=== PATIENT | male | born 1970 | race Caucasian/White ===

== ENCOUNTER 2020-09-15 12:25 | Outpatient (REF) | payer BC, SELFPAY ==
[2020-09-15 14:25] LABS: Alanine Aminotransferase 59 U/L (0-40); Albumin Level 4.2 g/dL (3.5-5.0); Alkaline Phosphatase 54 U/L (39-117); Anion Gap 12 (12-20); Aspartate Amino Transferase 33 U/L (5-37); Bilirubin Direct 0.2 mg/dL (0.0-0.5); Bilirubin Total 0.7 mg/dL (0.0-1.0); Blood Urea Nitrogen 17 mg/dL (9-16); Carbon Dioxide 27 mmol/L (22-29); Chloride 106 mmol/L (96-108); Estimated Glomerular Filt Rate > 60; Glucose Random 126 mg/dL (60-115); Sodium 141 mmol/L (135-145)
== END 2020-09-15 12:26 | disposition home or self-care (01) ==
LOC: HO.HMGCLDS 12:25
PROVIDERS: PCP Internal Medicine; Visit Provider Internal Medicine
DX: E78.9 Disorder of lipoprotein metabolism, unspecified (principal); H73.90 Unspecified disorder of tympanic membrane, unspecified ear; H91.90 Unspecified hearing loss, unspecified ear; I10 Essential (primary) hypertension
CPT/HCPCS: 36415; 80048; 80076

== ENCOUNTER 2021-07-20 11:33 | Outpatient (REF) | payer BC, SELFPAY ==
[2021-07-20 13:49] LABS: MANUAL DIFF FLAG NO
[2021-07-20 13:56] LABS: Basophils Percent Auto 0.6 % (0-2); Eosinophils Absolute Auto 0.1 X10*3/uL (0.0-0.4); Eosinophils Percent Auto 1.1 % (0-4); Hematocrit 47.5 % (42.0-52.0); Hemoglobin 15.7 g/dl (14.0-18.0); Imm Gran Abs Auto 0.02 X10*3/uL (0.00-0.03); Imm Gran Pct Auto 0.3 % (0.0-0.4); Lymphocytes Absolute Auto 2.7 X10*3/uL (1.2-4.9); Lymphocytes Percent Auto 37.6 % (20-40); Mean Corpuscular HGB Conc 33.1 g/dl (31.0-36.0); Mean Corpuscular Hemoglobin 30.3 pg (27.0-33.0); Mean Corpuscular Volume 91.7 fL (80.0-98.0); Mean Platelet Volume 9.8 fL (9.4-12.4); Monocytes Absolute Auto 0.6 X10*3/uL (0.1-1.2); Monocytes Percent Auto 8.2 % (2-11); Neutrophils Absolute Auto 3.7 x10*3/uL (2.0-8.3); Neutrophils Percent Auto 52.2 % (45-73); Platelet Count 361 X10*3/uL (160-400); Red Blood Count 5.18 X10*6/uL (4.60-5.80); Red Cell Distribution Width 14.3 % (11.0-16.0); White Blood Count 7.1 X10*3/uL (4.8-10.8)
[2021-07-20 14:29] LABS: Alanine Aminotransferase 49 U/L (0-40); Albumin Level 4.3 g/dL (3.5-5.0); Alkaline Phosphatase 55 U/L (39-117); Anion Gap 13 (12-20); Aspartate Amino Transferase 29 U/L (5-37); Bilirubin Total 0.7 mg/dL (0.0-1.0); Blood Urea Nitrogen 18 mg/dL (9-16); Calcium 9.4 mg/dL (8.4-10.2); Carbon Dioxide 24 mmol/L (22-29); Chloride 109 mmol/L (96-108); Cholesterol 198 mg/dL; Estimated Glomerular Filt Rate > 60; Glucose Fasting 98 mg/dL (60-99); HDL Cholesterol 35 mg/dL; LDL Cholesterol Calculated 124 mg/dl; Sodium 142 mmol/L (135-145); Total Protein 7.3 g/dL (6.5-8.0); Triglycerides 195 mg/dL
== END 2021-07-20 11:34 | disposition home or self-care (01) ==
LOC: HO.HMGCLDS 11:33
PROVIDERS: PCP Internal Medicine; Visit Provider Internal Medicine
DX: Z00.01 Encounter for general adult medical examination with abnormal findings (principal); E78.9 Disorder of lipoprotein metabolism, unspecified; I10 Essential (primary) hypertension
CPT/HCPCS: 36415; 80053; 80061; 85025

== ENCOUNTER 2022-01-18 12:06 | Outpatient (REF) | payer BC, SELFPAY ==
[2022-01-18 13:43] LABS: MANUAL DIFF FLAG NO
[2022-01-18 13:55] LABS: Basophils Absolute Auto 0.1 X10*3/uL (0.0-0.2); Basophils Percent Auto 0.7 % (0-2); Eosinophils Absolute Auto 0.1 X10*3/uL (0.0-0.4); Eosinophils Percent Auto 1.2 % (0-4); Hematocrit 46.6 % (42.0-52.0); Hemoglobin 15.5 g/dl (14.0-18.0); Imm Gran Abs Auto 0.02 X10*3/uL (0.00-0.03); Imm Gran Pct Auto 0.3 % (0.0-0.4); Lymphocytes Absolute Auto 2.6 X10*3/uL (1.2-4.9); Lymphocytes Percent Auto 34.3 % (20-40); Mean Corpuscular HGB Conc 33.3 g/dl (31.0-36.0); Mean Corpuscular Hemoglobin 30.6 pg (27.0-33.0); Mean Corpuscular Volume 91.9 fL (80.0-98.0); Mean Platelet Volume 10.3 fL (9.4-12.4); Monocytes Absolute Auto 0.6 X10*3/uL (0.1-1.2); Monocytes Percent Auto 8.3 % (2-11); Neutrophils Absolute Auto 4.2 x10*3/uL (2.0-8.3); Neutrophils Percent Auto 55.2 % (45-73); Platelet Count 345 X10*3/uL (160-400); Red Blood Count 5.07 X10*6/uL (4.60-5.80); Red Cell Distribution Width 14.2 % (11.0-16.0); White Blood Count 7.7 X10*3/uL (4.8-10.8)
[2022-01-18 14:12] LABS: Alanine Aminotransferase 47 U/L (0-40); Albumin Level 4.1 g/dL (3.5-5.0); Alkaline Phosphatase 56 U/L (39-117); Anion Gap 11 (12-20); Aspartate Amino Transferase 32 U/L (5-37); Bilirubin Total 0.6 mg/dL (0.0-1.0); Blood Urea Nitrogen 16 mg/dL (9-16); Calcium 8.9 mg/dL (8.4-10.2); Carbon Dioxide 23 mmol/L (22-29); Chloride 109 mmol/L (96-108); Cholesterol 186 mg/dL; Estimated Glomerular Filt Rate > 60; Glucose Fasting 91 mg/dL (60-99); HDL Cholesterol 32 mg/dL; LDL Cholesterol Calculated 116 mg/dl; Potassium 4.3 mmol/L (3.3-5.1); Sodium 139 mmol/L (135-145); Triglycerides 194 mg/dL
== END 2022-01-18 12:07 | disposition home or self-care (01) ==
LOC: HO.HMGCLDS 12:06
PROVIDERS: Visit Provider Internal Medicine
DX: E66.09 Other obesity due to excess calories (principal); E78.9 Disorder of lipoprotein metabolism, unspecified; I10 Essential (primary) hypertension
CPT/HCPCS: 36415; 80053; 80061; 85025

== ENCOUNTER → 2022-02-27 14:00 | Outpatient (REF) | payer BC, SELFPAY ==
--- NOTE | 2022-02-27 14:03 | CA_ITS ---
Transthoracic Echocardiogram Patient (Last, First, Middle): Juan Girard N Gender: Male Date of : 1970 Age: 51 Procedure Date: 02/27/2022 Procedure Type: Transthoracic Echocardiogram Location: OP Height: 177.8 cm Weight: 113.4 kg BSA: 2.29 m2 Heart Rate: bpm BP: 129 / 87 mmHg Sport Psychologist: FRANCISCO Referring MD: Nader Parry MD Rounding And Backing Machine Operator: Schuyler Skaggs MD Symptoms: R07.89 - Other chest pain Study Quality: Adequate ECG Rhythm: Sinus Conclusions: - Essentially normal study Findings Left Ventricle Normal left ventricular size, thickness, and systolic function. The visually estimated ejection fraction is between 60-65%. Spectral Doppler is indicative of a normal filling pattern. Right Ventricle Normal right ventricular cavity size and systolic function. Atria Both atria are normal in size. There is no evidence of interatrial shunt. Aortic Valve Normal aortic valve structure and function. There is no aortic valve stenosis. There is no aortic valve regurgitation. Mitral Valve Normal mitral valve structure and function. There is no mitral valve regurgitation. There is no mitral valve stenosis. Pulmonic Valve The pulmonic valve is likely normal. There is trace to mild pulmonic valve regurgitation. Tricuspid Valve Normal tricuspid valve structure. Tricuspid regurgitation envelope is inadequate for calculation of right ventricular systolic pressure. Normal right atrial pressure. Great Vessels All visible segments of the aorta are normal in size. The pulmonary artery was not well visualized. Venous The inferior vena cava is normal in size and collapses greater than 50% with inspiration. Pericardium/Pleural There is no evidence of pericardial effusion. Prior Study Comparison No prior study available for comparison. Measurements 2D Linear Measurements IVSd: 0.97 0.6-0.9/0.6-1.0 cm LVIDd: 4.45 3.9-5.3/4.2-5.9 cm LVIDd Index: 1.94 2.4-3.2/2.2-3.1 cm/m2 LVIDs: 2.75 2.0-3.6 cm LVPWd: 0.80 0.7-1.1 cm LA Diam: 3.40 2.7-3.8/3.0-4.0 cm LAIDs Index: 1.48 1.5-2.3 cm/m2 LV Mass: 158.50 67-162/88-224 g LV Mass Index: 69.21 43-95/49-115 g/m2 LVOT Diam: 2.10 3.0+(-)1.3 cm 2D Systolic Function EF 4C: 59.90 >55% EF 2C: 61.20 >55% EF BiP: 61.60 >55% Mitral Valve MV Pk E: 0.65 MV PK A: 0.51 MV Decel Time: 193.00 E/A: 1.30 E'Lateral: 13.70 E'Medial: 8.49 E/E' Med: 7.60 E/E' Lat: 4.70 PHT: 57.00 MVA PHT: 3.86 Decel Bond: 3.35 Aortic Valve AoV Pk Noble: 1.31 AoV Mn Noble: 0.90 AoV VTI: 0.28 AoV Pk Grad: 7.00 Aov Mn Grad: 4.00 SHARON Cont.VTI: 2.68 LVOT LVOT Pk Noble: 0.90 LVOT Mn Noble: 0.64 LVOT VTI: 0.21 LVOT Pk Grad: 3.00 LVOT Mn Grad: 2.00 LVOT Diam: 2.10 LVOT Area: 3.46 Diastolic Function MV Pk E: 0.65 MV Pk A: 0.51 E/A: 1.30 E'Medial: 8.49 E/E' Med: 7.60 E' Laterial: 13.70 E/E' Lat: 4.70 Right Ventricle TAPSE (mm): 21.40 TVS' Noble: 10.80 Tricuspid Valve RA Press: 3.00 Great Vessels Aorta Sinus of Valsalva: 3.09 2.0-3.[address] Ridge: 2.46 1.7-3.4 cm Ao Asc: 3.10 2.1-3.4 cm Updated in Other Vendor System with Status of Final Schuyler Skaggs MD electronically signed on 02/27/2022 3:25:14 PM with status of Final
== END ==
LOC: HO.CARD 14:00
PROVIDERS: PCP Internal Medicine; Visit Provider Internal Medicine
DX: R07.89 Other chest pain (principal); I10 Essential (primary) hypertension
CPT/HCPCS: 93306

== ENCOUNTER 2022-04-10 12:07 | Day surgery (SDC) | payer BC, SELFPAY ==
[2022-04-10 12:30] VITALS: BP 151/98; PULSE 97; RESP 18; TEMP 36.7; O2SAT 99; BMI 30.6
[2022-04-10 12:49] VITALS: BMI 30.6
--- NOTE | 2022-04-10 12:59 | HO.ANESPROP2 ---
[facility] Active Problems Active Problems: All Active Problems (Updated 04/05/22 @ 12:00 by Ana Clemons RN) Hypertension, essential (Acute) Lipid disorder (Acute) Hearing difficulty (Acute) Tympanic membrane disorder (Acute) Acute sinusitis (Acute) Otitis media (Acute) Pharyngitis (Acute) Encounter for general adult medical examination with abnormal findings (Acute) Colon cancer screening (Acute) Cellulitis of nose, external (Acute) Obesity due to excess calories (Acute) Chest discomfort (Acute) Past Medical History Medical History PONV (postoperative nausea and vomiting) Family History Family History Mother No problems noted. Other Substance use disorder Family history of problems with anesthesia: No Surgical History Surgical History History of surgery History of Problems with Anesthesia: No Social History Social History Housing: House Are you a primary critical care specialist to a significant other at home: No Do you presently have visiting nurse or other home services: No Patient Tobacco Use Status: Former Tobacco user e-Cigarette/Vaping Use: Never Used Use of substances other than those prescribed or required for medical reasons: No Have you been hit, kicked, punched, or otherwise hurt by someone within the past year? If so, by whom?: No Are you DNR?: No Advance Directives: No Advance Directives Information Provided: Yes Recently lost weight without trying: No Eating poorly because of decreased appetite: No Nutrition Risks: No Nutritional Risk service: No Current occupational status: employed Cognitive needs: No Hearing needs: No Vision needs: Yes Meds Allergies Allergy/AdvReac Type Severity Reaction Status Date / Time diphtheria,pertussis Allergy Unknown Unknown Verified 02/16/22 15:07 (acell)raul Active Medications: Current Medications Lactated Ringer's (Lr) 1,000 mls @ 50 mls/hr IVCONT .Q20H NILO Exam Exam Date and Time: April 10, 2022 1259 Height,Weight and Vital Signs: Height 5 ft 10 in Weight 96.8 kg Last Vital Signs Temp 98.0 F 04/10/22 12:30 Pulse 97 04/10/22 12:30 Resp 18 04/10/22 12:30 BP 151/98 H 04/10/22 12:30 Pulse Ox 99 04/10/22 12:30 O2 Del Method 04/10/22 12:30 Airway Mallampati Class: II TM Dist: >3cm Neck ROM: Full Partial: Upper (Permanent) Heart: rrr Lungs: cta Assessment and Plan Assessment Anesthesia Assessment: Anesthesia Plan Discussed and Chart Reviewed Final Anesthetic Review Family History of Problems with Anesthesia: No History of Problems with Anesthesia: No NPO: Yes ASA Class: II Final Preanesthetic Review: No Changes in Pt Med Stat, Meds/Allgs Chart Reviewed and Consent Obtained/Reviewed Patient Risk: Intermediate Procedure Risk: Intermediate Anesthetic Plan Anesthetic Plan: MAC: Disposition: Standard PACU
--- NOTE | 2022-04-10 13:00 | MHC.SHP ---
Pre-Procedural Eval Section A Date of Service: 04/10/22 The patient is an INPATIENT: No The History & Physical has been completed within 30 days and I have reviewed it.: No Section B Chief Complaint: screening Relevant Family History (Specify if Yes): No Relevant Social History: Tobacco Use (former smoker) Present Medications: see Short Stay Collaborative assessment Medical History: Significant History (Hypertension, lipid disorder, hearing difficulty) History of Previous Operations: Relevant previous surgery/procedure and date(s) (Gallbladder surgery) Allergies: Allergies Allergy/AdvReac Type Severity Reaction Status Date / Time diphtheria,pertussis Allergy Unknown Unknown Verified 02/16/22 15:07 (acell),raul Review of Systems Sugical H&P ROS: Negative: Constitution, Cardiovascular, Respiratory and Gastrointestinal Exam Surgical H&P Exam: Normal: Heart, Normal: Lungs, Normal: Extremities and Normal: Abdomen Plan Diagnosis/Plan: Unchanged I have reviewed the history and physical and performed a pertinent physical examination on my patient. No changes have occurred unless specified.
[2022-04-10] MEDS: Lactated Ringers 1,000 ML 50 ML IVCONT (13:04)
--- NOTE | 2022-04-10 13:06 | W.PM.OPN ---
Operative Note Operative Note Date of Service: 04/10/22 Narrative: Pre-op diagnosis: Colon cancer screening Post-op diagnosis:?other (Colon polyps, diverticulosis, hemorrhoids) Procedure: COLONOSCOPY TILL CECUM WITH BIOPSIES Consent: Indications for the procedure and potential complications of bleeding, perforation, reaction to medications and missed diagnosis were discussed with the patient and informed consent was obtained. Instrument: Olympus PCF H 190 L variable stiffness pediatric colonoscope Monitoring: Vital signs and clinical assessment, intermittent blood pressure monitoring, continuous EKG monitoring, Pulse oximetry and Carbon Dioxide monitoring were done throughout the procedure. Colon withdrawl time was 20 minutes. Procedure: The patient was placed in the left lateral decubitis position and pre-procedure medications were administered. After a digital rectal examination of the ano-rectum, the video colonoscope was inserted into the rectum and advanced through the colon to the cecum. The colonoscope was slowly withdrawn in a retrograde panoramic fashion and the colon mucosa was carefully examined including a retroflexed view of the rectum. Findings and interventions are described below. Procedure Difficulty:? Colon was long and there was some loop formation.? No maneuvers were required? Findings: Terminal Ileum: Not evaluated Cecum:? A 5-6 mm diminutive appearing polyp - removed with a cold biopsy Ascending Colon:? Normal Transverse Colon:? A 7-8 mm sessile polyp removed with a cold bx Descending Colon:? Moderate dverticulosis Sigmoid Colon:? Moderate diverticulosis Rectum:? Normal Ano-rectum:? Moderate internal hemorrhoids Colon preparation:? Good after some irrigation Impression and Post Procedure Diagnosis: Colonoscopy Findings: Two small polyps removed Moderate diverticulosis seen in the left colon Moderate hemorrhoids on retroflexed exam. Plan: Await pathology results Patient has an appointment on 04/24/22 in the GI Clinic with Samina Wisdom FNP-BC. Repeat Colonoscopy interval based on path results - in 5 years if polyps are adenomatous and 10 years if polyps are hyperplastic. Above findings were reviewed with the patient and colon polyps and diverticulosis handouts were given in the discharge area Surgeon: Deb Madrigal MD Anesthesia:?MAC Was an Programming Intern used for this Procedure?:?Yes Programming Intern:?Yaneth Diez Estimated blood loss (mL):?0 Pathology:?other (A: transverse colon polyp? B: cecal polyp) Condition:?stable Disposition:?PACU
[2022-04-10 13:46] VITALS: BP 123/85; PULSE 95; RESP 16; TEMP 36.4; O2SAT 98
[2022-04-10 14:01] VITALS: BP 138/87; PULSE 81; RESP 16; TEMP 36.7; O2SAT 99
[2022-04-10 14:16] VITALS: BP 140/19; PULSE 89; RESP 16; TEMP 36.7; O2SAT 98
== END 2022-04-10 14:35 | disposition home or self-care (01) ==
PROVIDERS: PCP Internal Medicine; Visit Provider Internal Medicine Gastroenterology
PROC: 0DJD8ZZ Inspection of Lower Intestinal Tract, Via Natural or Artificial Opening Endoscopic (ICD-10-PCS; CPT 45378; principal; 2022-04-10 15:00)
DX: Z12.11 Encounter for screening for malignant neoplasm of colon (principal); K63.5 Polyp of colon; K57.30 Diverticulosis of large intestine without perforation or abscess without bleeding; K64.8 Other hemorrhoids
CPT/HCPCS: 45380; 88305

== ENCOUNTER 2023-03-30 07:18 | Outpatient (AMB) | payer BC, SELFPAY ==
--- NOTE | 2023-03-30 07:16 | MHC.PC.OV ---
Intake Visit Reasons: Android/ [phone]/Med follow up Allergies diphtheria,pertussis (acell),tetanu Allergy (Unknown, Verified 05/12/22 16:00) Unknown Medication List - Last Reconciled 03/30/23 by Nader Parry MD fenofibrate nanocrystallized 145 mg PO DAILY 90 days lisinopril 20 mg PO DAILY 90 days polyethylene glycol 3350 (Miralax) 17 grams PO DAILY Tobacco use date assessed: 03/30/23 Dental Screening Dental Screen Date: 03/30/23 Did you have a dental visit in the last 12 months?: No Was dental information given to patient?: Patient has dentist HPI Android/ [phone]/Med follow up HPI Details It is 52-year-old gentleman who was last seen April 20 of last year. Patient says that office keep cancelling and rescheduling him and he could not come in. Explained to him that it is very important that we see him regularly and labs are needed at least every 6 months so we can monitor the side effects He is on lisinopril 20 mg which is helping him control his blood pressure it runs around 120 systolic when he is taking medication and 140 he is not taking it. He is also on fenofirate 145 mg for lipid control. Patient says that he is no longer constipated and does not need a refill off MiraLax. Lab order placed to be done fasting He has a physical exam appointment August 15 [facility] Medical History Colon cancer screening Diverticular disease Internal hemorrhoid PONV (postoperative nausea and vomiting) Surgical History History of surgery Hx of colonoscopy Family History Mother No problems noted. Other Substance use disorder Social History Housing: House Are you a primary child care coordinator to a significant other at home: No Do you presently have visiting nurse or other home services: No Patient Tobacco Use Status: Former Tobacco user e-Cigarette/Vaping Use: Never Used service: No Current occupational status: employed Cognitive needs: No Hearing needs: No Vision needs: Yes Questionnaire PHQ-9 Over the last 2 weeks, how often have you been bothered by any of the following problems? 1. Little interest or pleasure in doing things: not at all 2. Feeling down, depressed, or hopeless: not at all 3. Trouble falling or staying asleep, or sleeping too much: not at all 4. Feeling tired or having little energy: not at all 5. Poor appetite or overeating: not at all 6. Feeling bad about yourself - or that you are a failure or have let yourself or your family down: not at all 7. Trouble concentrating on things, such as reading the newspaper or watching television: not at all 8. Moving or speaking so slowly that other people could have noticed. Or the opposite - being so fidgety or restless that you have been moving around a lot more than usual: not at all 9. Thoughts that you would be better off or of hurting yourself in some way: not at all Total score: 0 Depression Screening Interpretation: Negative 78114 - PHQ-9 Billing: Yes Source: Developed by Drs. Nico Xiao, Denise Lagunas, Prabhakar Wright and colleagues, with an educational marixa from [employer]. Thrive Questionnaire Date Thrive assessed: 03/30/23 I am a: Patient What is your living situation today?: I have a steady place to live Within the past 12 months, did the food you bought not last and you didn't have the money to get more?: Never true Within the past 12 months, did you worry whether your food would run out before you got money to buy more?: Never true Do you have trouble paying for medicines?: No Do you have trouble getting transportation to medical appointments?: No Do you have trouble paying your heating and electricity bill?: No Do you have trouble taking care of your child, family member or friend?: No Do you have trouble with day-to-day activities such as bathing, preparing meals, shopping, managing finances, etc.?: No Are you currently unemployed and looking for a job?: No Are you interested in more education?: No Currently or been in a relationship where the following occur: no concerns reported AUDIT C Alcohol Use Questionnaire (AUDIT-C) 1. How often do you have a drink containing alcohol?: Never Total Score: 0 Score Reviewed/Action Taken: No DRAGAN-7 AMB Questionnaire DRAGAN-7 Date DRAGAN - 7 assessed: 03/30/23 Feeling nervous, anxious, or on edge: 0 = Not at all Not being able to stop or control worryin = Not at all Worrying too much about different things: 0 = Not at all Trouble relaxin = Not at all Being so restless that it is hard to sit still: 0 = Not at all Becoming easily annoyed or irritable: 0 = Not at all Feeling afraid as if something awful might happen: 0 = Not at all Total DRAGAN-7 score (0-4 normal; 5-9 mild; 10-14 moderate; 15-21 severe): 0 Source: Developed by Drs. Nico Xiao, Denise Lagunas, Prabhakar Wright and colleagues, with an educational marixa from [employer]. DRAGAN-7 Assessment Billing DRAGAN-7 Assessment Tool: DRAGAN-7 Assessment 68209 Review of Systems Const Denies chills and Denies fever(s) ENT Denies epistaxis and Denies nasal discharge Card Denies chest pain Resp Denies chest congestion, Denies cough and Denies hemoptysis GI Denies diarrhea and Denies nausea Skin/Breast Denies rash Neuro Reports no additional complaints Psych Reports no additional complaints Endo Reports no additional complaints Physical exam (Primary Care) Tobacco/Smoking Status: Tobacco use Status Tobacco use date assessed 03/30/23 03/30/23 07:17 Patient Tobacco Use Status Former Tobacco user 03/30/23 07:17 e-Cigarette/Vaping Use Never Used 03/30/23 07:17 PHQ-9: PHQ-9 Score PHQ-9: Total score 0 03/30/23 07:18 Depression Screening Interpretation: Negative Thrive Assessment: Date of Thrive Assessment Date Thrive assessed 03/30/23 03/30/23 07:18 Currently or been in a relationship where the following occur: no concerns reported Telehealth Telehealth Location of provider rendering services: practice address Location of patient: address on file Patient Identification confirmed using: Name, : Yes Telehealth method: video Patient verbally consented to treatment: Yes Patient verbally consented to billing insurance company: Yes Patient informed of any privacy concerns related to visit: Yes Minutes spent on Phone/Video with Pt.: 14 Assessment and Plan Assessment & Plan (1) Hypertension, essential: Code(s): I10 - Essential (primary) hypertension (2) Lipid disorder: Code(s): E78.9 - Disorder of lipoprotein metabolism, unspecified Plan It is 52-year-old gentleman who was last seen April 20 of last year. Patient says that office keep cancelling and rescheduling him and he could not come in. Explained to him that it is very important that we see him regularly and labs are needed at least every 6 months so we can monitor the side effects He is on lisinopril 20 mg which is helping him control his blood pressure it runs around 120 systolic when he is taking medication and 140 he is not taking it. He is also on fenofirate 145 mg for lipid control. Patient says that he is no longer constipated and does not need a refill off MiraLax. Lab order placed to be done fasting He has a physical exam appointment August 15 Medications: Refilled lisinopril 20 mg PO DAILY 90 days 90 tabs 0RF I10 - Essential (primary) hypertension fenofibrate nanocrystallized 145 mg PO DAILY 90 days 90 tabs 0RF E78.9 - Disorder of lipoprotein metabolism, unspecified Coding Level of Care Code Tele Est Pt Level 3 (45185) Diagnoses Hypertension, essential I10 Lipid disorder E78.9 Additional Codes DRAGAN-7 Assessment Billing - DRAGAN-7 Assessment Tool: DRAGAN-7 Assessment 50735 ([id number])
== END 2023-03-30 09:41 | disposition home or self-care (01) ==
LOC: HO.HMGC 07:18
PROVIDERS: PCP Internal Medicine; Visit Provider Internal Medicine
DX: I10 Essential (primary) hypertension (principal); E78.9 Disorder of lipoprotein metabolism, unspecified
CPT/HCPCS: 99213

== ENCOUNTER 2023-03-31 11:35 | Outpatient (REF) | payer BC, SELFPAY ==
[2023-03-31 13:32] LABS: Alanine Aminotransferase 36 U/L (0-40); Albumin Level 3.9 g/dL (3.5-5.0); Alkaline Phosphatase 53 U/L (39-117); Anion Gap 11 (12-20); Aspartate Amino Transferase 25 U/L (5-37); Bilirubin Total 0.6 mg/dL (0.0-1.0); Blood Urea Nitrogen 16 mg/dL (9-16); Carbon Dioxide 25 mmol/L (22-29); Chloride 109 mmol/L (96-108); Cholesterol 186 mg/dL (<200); Estimated Glomerular Filt Rate > 60; Glucose Fasting 95 mg/dL (60-99); HDL Cholesterol 31 mg/dL (>40); LDL Cholesterol Calculated 107 mg/dL (<100); Potassium 3.8 mmol/L (3.3-5.1); Sodium 141 mmol/L (135-145); Triglycerides 240 mg/dL (<150)
== END 2023-03-31 11:36 | disposition home or self-care (01) ==
LOC: HO.HMGCLDS 11:35
PROVIDERS: PCP Internal Medicine; Visit Provider Internal Medicine
DX: E78.9 Disorder of lipoprotein metabolism, unspecified (principal); I10 Essential (primary) hypertension
CPT/HCPCS: 36415; 80053; 80061

== ENCOUNTER 2023-05-21 16:34 | Outpatient (AMB) | payer BC, SELFPAY ==
--- NOTE | 2023-05-21 16:36 | A.OFFVIS_ITS ---
Intake Vital Signs 05/21/23 16:37 Height 5 ft 9.5 in Weight 233 lb 11.04 oz BMI 34.0 BP 125/103 H Blood Pressure Location Lt brachial Position Sitting Pulse 92 Intake Visit Reasons: 1 year follow up Intake Note: Juan presents in the office as a 1 year follow up. CC: He states that he is not having any GI concerns but he has developed migraines. His primary care keeps rescheduling with him so he is unable to tell them about whats going. Construction Sales Representative Required: No Allergies Tetanus Vaccines and Toxoid Allergy (Mild, Verified 05/21/23 16:37) Unknown diphtheria,pertussis (acell),tetanu Allergy (Unknown, Verified 05/21/23 16:37) Unknown HPI 1 year follow up HPI Details LAST VISIT Internal hemorrhoid Patient denies any rectal pain or bleed. Diverticular disease Will start patient on MiraLax. Patient was also encouraged to increase fiber in his diet. Diverticulosis diet recommendations given to patient. Status post colonoscopy Colorectal screening will be due in 10 years. Two benign polyps found. No tubular adenoma, no high-grade dysplasia or carcinoma found. Patient denies any ill effects from the prep, anesthesia or procedure itself. I will see him in 1 year, sooner on as needed basis. Patient is agreeable to this plan and verbalizes understanding of instructions. He was given the opportunity to ask questions and questions answered. ? Thank you for allowing me to participate in his care Plan Medications New polyethylene glycol 3350 (Miralax) 17 grams PO DAILY 510 grams 3RF TODAY'S VISIT She patient is here today for follow-up. Patient reports that he has been doing well his last senna him 1 year ago. Patient was and he is moving bowels well without any issues. Patient denies any melena, hematochezia, unintentional weight loss or ribbon like stools. Patient reports that he no longer in need to use MiraLax daily. Patient denies any dyspepsia dysphagia or odynophagia. Patient denies any GI concerning symptoms. [facility] Medical History Diverticular disease Internal hemorrhoid PONV (postoperative nausea and vomiting) Colon cancer screening Surgical History Hx of colonoscopy History of surgery Family History Mother No problems noted. Other Substance use disorder Social History Housing: House Are you a primary interior plant caretaker to a significant other at home: No Do you presently have visiting nurse or other home services: No Patient Tobacco Use Status: Former Tobacco user e-Cigarette/Vaping Use: Never Used service: No Current occupational status: employed Cognitive needs: No Hearing needs: No Vision needs: Yes Review of Systems Const Denies weight gain and Denies weight loss ENT Reports no additional complaints, Denies dysphagia and Denies odynophagia Card Reports no additional complaints Resp Reports no additional complaints GI Denies abdominal pain, Denies belching, Denies melena, Denies bloating, Denies change in bowel habits, Denies dysphagia, Denies excessive flatus, Denies dyspepsia, Denies heartburn, Denies diarrhea, Denies loose stools, Denies nausea, Denies odynophagia and Denies vomiting Reports no additional complaints Musc Reports no additional complaints Neuro Reports no additional complaints Psych Reports no additional complaints Endo Reports no additional complaints Physical Exam Vital Signs: Last Vital Signs Pulse 92 05/21/23 16:37 BP 125/103 H 05/21/23 16:37 BMI result Body Mass Index 34.0 Const General: healthy appearing, no acute distress and well developed Nutritional Appearance: obese Orientation/consciousness: patient oriented x3 HEENT Head: Yes normal to inspection, Yes normocephalic and Yes atraumatic Face and sinus: Yes normal facial exam Mouth: Normal oral and palatal mucosa present Throat: Yes posterior oropharynx normal, Yes tonsils normal and Yes uvula midline Eyes General: appearance normal, both eyes and all related structures Neck Neck: Yes normal visual inspection, Yes full ROM and Yes trachea midline Thyroid: Thyroid normal Resp Effort & Inspection: normal respiratory effort, able to speak in complete sentences, no tracheal deviation and symmetric chest movement Auscultation: clear to auscultation bilaterally Cardio Rate: regular rate Heart sounds: S1 normal heart sound present and S2 normal heart sound present GI Inspection: Yes normal to inspection, No distended and Yes obesity Palpation (GI): Soft to palpation, not firm, nontender and No hepatosplenomegaly present Auscultation: normal bowel sounds General: Yes no CVA tenderness Back/Spine/Pelvis Back: no CVA tenderness Skin General skin exam: elasticity normal, turgor normal and dry skin Neuro General: patient oriented x3 Psych Appearance: grossly normal Mental Status: mental status grossly normal Assessment & Plan Assessment & Plan (1) Internal hemorrhoid: Code(s): K64.8 - Other hemorrhoids (2) Diverticulosis: Code(s): K57.90 - Diverticulosis of intestine, part unspecified, without perforation or abscess without bleeding Plan Continue high-fiber diet. Patient currently has no GI concerning symptoms. His colonoscopy she is due in 9 years, sooner if clinically necessary. Patient will follow-up in our office on needed basis. He is agreeable to this plan and verbalizes understanding of instructions. He had the opportunity to ask eli ns and all questions answered. Thank you for allowing me to participate in his care Coding Level of Care Code Est Pt Level 3 (61040) Diagnoses Internal hemorrhoid K64.8 Diverticulosis K57.90 Time Spent (min) 25 Comment 15 minutes spent with patient and additional 10 minutes spent reviewing his records
[2023-05-21 16:37] VITALS: BP 125/103; PULSE 92; BMI 34.0
== END 2023-05-21 16:49 | disposition home or self-care (01) ==
PROVIDERS: PCP Internal Medicine; Visit Provider Nurse Practitioner Family
DX: K64.8 Other hemorrhoids (principal); K57.90 Diverticulosis of intestine, part unspecified, without perforation or abscess without bleeding
CPT/HCPCS: 99213

== ENCOUNTER → 2023-05-21 16:34 | Outpatient (BNVA) | payer BC, SELFPAY | PROVIDERS: PCP Internal Medicine; Visit Provider Nurse Practitioner Family ==

== ENCOUNTER 2023-08-15 10:01 | Outpatient (AMB) | payer BC, SELFPAY ==
[2023-08-15 10:00] VITALS: BP 136/88; PULSE 104; O2SAT 98; BMI 34.5
--- NOTE | 2023-08-15 10:00 | A.OFFPC_ITS ---
Vital Signs 08/15/23 10:00 Height 5 ft 9.5 in Weight 237 lb 6 oz BMI 34.5 BP 136/88 Blood Pressure Location Lt brachial Position Sitting Pulse 104 H Pulse Source Pulse Oximeter Pulse Oximetry (%) 98 Oxygen Delivery Method Room Air Intake Visit Reasons: annual PE Allergies Tetanus Vaccines and Toxoid Allergy (Mild, Verified 08/15/23 10:03) Unknown diphtheria,pertussis (acell),tetanu Allergy (Unknown, Verified 08/15/23 10:03) Unknown Medication List - Last Reconciled 08/15/23 by Nader Parry MD fenofibrate nanocrystallized 145 mg PO DAILY 90 days lisinopril 20 mg PO DAILY 90 days Tobacco use date assessed: 08/15/23 Dental Screening Dental Screen Date: 08/15/23 Did you have a dental visit in the last 12 months?: Yes Did you have a dental problem in the last 6 months where you did not have access to dental care?: No Was dental information given to patient?: Patient has dentist HPI annual PE HPI Details Patient is a 52-year-old gentleman came in today for physical exam Endoscopy was in 2021 [facility] Blood pressure is stable patient is taking both medications without any side effects . He is on lisinopril 20 mg and fenofibrate for lipid disorder Patient is complaining of headache associated nausea, triggers are certain smells Sometimes forehead sometime half ahead Patient is having it once a week I am starting him on amitriptyline 25 mg as a preventive medication They will book a telemedicine visit in 2 or 3 weeks to follow-up on that BMI is elevated need to lose weight Patient says that sometimes when he have headache he also started having chest pressure We did the EKG today which showed premature ventricular contraction Findings explained to patient, I am ordering 48 hour Holter monitor to further evaluate that Patient also have seasonal asthma in his requesting refill of his inhaler. We will book a follow-up telemedicine appointment , for headaches, Holter monitor and for asthma Patient is to return in 6 months for follow-up in 1 year physical exam [facility] Medical History Diverticular disease Internal hemorrhoid PONV (postoperative nausea and vomiting) Colon cancer screening Surgical History Hx of colonoscopy History of surgery Family History Mother No problems noted. Other Substance use disorder Social History Housing: House Are you a primary animal caregiver to a significant other at home: No Do you presently have visiting nurse or other home services: No Patient Tobacco Use Status: Former Tobacco user e-Cigarette/Vaping Use: Never Used service: No Current occupational status: employed Cognitive needs: No Hearing needs: No Vision needs: Yes Questionnaire PHQ-9 Over the last 2 weeks, how often have you been bothered by any of the following problems? 1. Little interest or pleasure in doing things: not at all 2. Feeling down, depressed, or hopeless: several days 3. Trouble falling or staying asleep, or sleeping too much: more than half the days 4. Feeling tired or having little energy: more than half the days 5. Poor appetite or overeating: several days 6. Feeling bad about yourself - or that you are a failure or have let yourself or your family down: several days 7. Trouble concentrating on things, such as reading the newspaper or watching television: several days 8. Moving or speaking so slowly that other people could have noticed. Or the opposite - being so fidgety or restless that you have been moving around a lot more than usual: not at all 9. Thoughts that you would be better off or of hurting yourself in some way: not at all Total score: 8 Depression Screening Interpretation: Negative Depression Screening Done: Yes 27547 - PHQ-9 Billing: Yes Source: Developed by Drs. Nico Xiao, Denise Lagunas, Prabhakar Wright and colleagues, with an educational marixa from [employer]. Thrive Questionnaire Date Thrive assessed: 08/15/23 I am a: Patient What is your living situation today?: I have a steady place to live Within the past 12 months, did the food you bought not last and you didn't have the money to get more?: Never true Within the past 12 months, did you worry whether your food would run out before you got money to buy more?: Never true Do you have trouble paying for medicines?: No Do you have trouble getting transportation to medical appointments?: No Do you have trouble paying your heating and electricity bill?: No Do you have trouble taking care of your child, family member or friend?: No Do you have trouble with day-to-day activities such as bathing, preparing meals, shopping, managing finances, etc.?: No Are you currently unemployed and looking for a job?: No Are you interested in more education?: No Please select the resources that you would like help with: None Currently or been in a relationship where the following occur: no concerns reported AUDIT C Alcohol Use Questionnaire (AUDIT-C) 1. How often do you have a drink containing alcohol?: Never 3. How often do you have six or more drinks on one occasion?: Never Total Score: 0 Score Reviewed/Action Taken: Yes DRAGAN-7 AMB Questionnaire DRAGAN-7 Date DRAGAN - 7 assessed: 08/15/23 Feeling nervous, anxious, or on edge: 1 = Several days Not being able to stop or control worryin = Not at all Worrying too much about different things: 1 = Several days Trouble relaxin = Several days Being so restless that it is hard to sit still: 0 = Not at all Becoming easily annoyed or irritable: 1 = Several days Feeling afraid as if something awful might happen: 0 = Not at all Total DRAGAN-7 score (0-4 normal; 5-9 mild; 10-14 moderate; 15-21 severe): 4 Source: Developed by Drs. Nico Xiao, Denise Lagunas, Prabhakar Wright and colleagues, with an educational marixa from [employer]. DRAGAN-7 Assessment Billing DRAGAN-7 Assessment Tool: DRAGAN-7 Assessment 40891 Review of Systems Const Denies chills and Denies fever(s) Eyes Denies blurry vision ENT Denies nasal discharge, Denies nasal obstruction, Denies odynophagia and Denies sinus pain Card Denies chest pain with activity Resp Denies cough and Denies hemoptysis GI Denies diarrhea, Denies odynophagia, Denies vomiting and Denies hematemesis Reports as per HPI Musc Denies abnormal gait Skin/Breast Reports as per HPI Neuro Denies Neuro-related abnormal movements, Denies Abnormal speech present, Denies abnormal gait and Denies Sensory deficit (Neuro) Psych Denies mood swings and Denies paranoia Endo Reports as per HPI Bernabe/Lymph Reports as per HPI Aller/Immun Reports as per HPI Physical exam (Primary Care) Vital Signs: Last Vital Signs Pulse 104 H 08/15/23 10:00 BP 136/88 08/15/23 10:00 Pulse Ox 98 08/15/23 10:00 Oxygen Delivery Method Room Air 08/15/23 10:00 BMI result Body Mass Index 34.5 Tobacco/Smoking Status: Tobacco use Status Tobacco use date assessed 08/15/23 08/15/23 10:03 Patient Tobacco Use Status Former Tobacco user 08/15/23 10:03 e-Cigarette/Vaping Use Never Used 08/15/23 10:03 PHQ-9: PHQ-9 Score PHQ-9: Total score 8 08/15/23 10:31 Depression Screening Interpretation: Negative Thrive Assessment: Date of Thrive Assessment Date Thrive assessed 08/15/23 08/15/23 10:05 Currently or been in a relationship where the following occur: no concerns reported Const General: cooperative, comfortable and no acute distress Orientation/consciousness: patient oriented x3 HENMT Head: Yes normocephalic and Yes atraumatic Eyes General: appearance normal, both eyes and all related structures Pupils: Equal, round and reactive pupils present EOM: EOMs intact bilaterally Neck Neck: Yes supple and No lymphadenopathy Thyroid: Thyroid normal Lymphatic: no lymphadenopathy noted Resp Effort & Inspection: normal respiratory effort and able to speak in complete sentences Auscultation: clear to auscultation bilaterally Cardio Heart sounds: S1 normal heart sound present and S2 normal heart sound present GI Palpation (GI): Soft to palpation and nontender Auscultation: normal bowel sounds General: Yes no CVA tenderness Back/Spine/Pelvis Back: no CVA tenderness Skin General skin exam: elasticity normal and turgor normal Neuro General: patient oriented x3 and gait normal Cranial nerves: Yes Equal, round and reactive pupils present Speech: No Abnormal speech present Sensory Exam: No Sensory deficit (Neuro) Coordination: tandem gait normal and Romberg test negative Extrem General: Yes normal exam except as noted and No edema Office Procedures EKG 24924-[id number], Complete Assessment and Plan Assessment & Plan (1) Encounter for general adult medical examination with abnormal findings: Code(s): Z00.01 - Encounter for general adult medical examination with abnormal findings (2) Obesity due to excess calories: Code(s): E66.09 - Other obesity due to excess calories Qualifiers: Body mass index: BMI 34.0-34.9 Obesity classification: adult class 1 (BMI 30 - 34.9) Serious obesity comorbidity presence: with serious comorbidity Qualified Code(s): E66.09 - Other obesity due to excess calories; Z68.34 - Body mass index [BMI] 34.0-34.9, adult (3) Lipid disorder: Code(s): E78.9 - Disorder of lipoprotein metabolism, unspecified (4) Hypertension, essential: Code(s): I10 - Essential (primary) hypertension (5) Internal hemorrhoid: Code(s): K64.8 - Other hemorrhoids (6) Headache syndrome: Code(s): G44.89 - Other headache syndrome (7) Chest pressure: Code(s): R07.89 - Other chest pain (8) Abnormal EKG: Code(s): R94.31 - Abnormal electrocardiogram [ECG] [EKG] (9) Premature ventricular contraction: Code(s): I49.3 - Ventricular premature depolarization (10) Asthma due to seasonal allergies: Code(s): J45.909 - Unspecified asthma, uncomplicated Plan Patient is a 52-year-old gentleman came in today for physical exam Endoscopy was in 2021 [facility] Blood pressure is stable patient is taking both medications without any side effects . He is on lisinopril 20 mg and fenofibrate for lipid disorder Patient is complaining of headache associated nausea, triggers are certain smells Sometimes forehead sometime half ahead Patient is having it once a week I am starting him on amitriptyline 25 mg as a preventive medication They will book a telemedicine visit in 2 or 3 weeks to follow-up on that BMI is elevated need to lose weight Patient says that sometimes when he have headache he also started having chest pressure We did the EKG today which showed premature ventricular contraction Findings explained to patient, I am ordering 48 hour Holter monitor to further evaluate that Patient also have seasonal asthma in his requesting refill of his inhaler. We will book a follow-up telemedicine appointment , for headaches, Holter monitor and for asthma Patient is to return in 6 months for follow-up in 1 year physical exam Orders: Orders Comprehensive Met. Panel Today E66.09 - Other obesity due to excess calories, E78.9 - Disorder of lipoprotein metabolism, unspecified, H91.90 - Unspecified hearing loss, unspecified ear, I10 - Essential (primary) hypertension, K64.8 - Other hemorrhoids, Z00.01 - Encounter for general adult medical examination with abnormal findings AMB EKG-In Office Today R07.89 - Other chest pain LDL Cholesterol Direct Today E66.09 - Other obesity due to excess calories, E78.9 - Disorder of lipoprotein metabolism, unspecified, H91.90 - Unspecified hearing loss, unspecified ear, I10 - Essential (primary) hypertension, K64.8 - Other hemorrhoids, Z00.01 - Encounter for general adult medical examination with abnormal findings ECG holter monitor 48 hour Today I49.3 - Ventricular premature depolarization, R94.31 - Abnormal electrocardiogram [ECG] [EKG] Medications: New albuterol sulfate 90 mcg/actuation (Ventolin HFA) 1 inh inhalation QID PRN 6.7 grams 2RF shortness of breath or wheezing 30 days amitriptyline 25 mg PO BEDTIME 30 tabs 0RF 30 days Coding Level of Care Code Est Pt Prev Care 40-64y(64034) Diagnoses Encounter for general adult medical examination with abnormal findings Z00.01 Class 1 obesity due to excess calories with serious comorbidity and body mass index (BMI) of 34.0 to 34.9 in adult E66.09; Z68.34 Body mass index: BMI 34.0-34.9 Obesity classification: adult class 1 (BMI 30 - 34.9) Serious obesity comorbidity presence: with serious comorbidity Lipid disorder E78.9 Hypertension, essential I10 Internal hemorrhoid K64.8 Headache syndrome G44.89 Chest pressure R07.89 Abnormal EKG R94.31 Premature ventricular contraction I49.3 Asthma due to seasonal allergies J45.909 CPT Codes EKG - CPT: 59326-[id number], Complete ([id number]) Additional Codes DRAGAN-7 Assessment Billing - DRAGAN-7 Assessment Tool: DRAGAN-7 Assessment 96719 ([id number])
== END 2023-08-15 10:34 | disposition home or self-care (01) ==
LOC: HO.HMGC 10:01
PROVIDERS: PCP Internal Medicine; Visit Provider Internal Medicine
DX: Z00.01 Encounter for general adult medical examination with abnormal findings (principal); R94.31 Abnormal electrocardiogram [ECG] [EKG]; R07.89 Other chest pain; J45.909 Unspecified asthma, uncomplicated; E66.09 Other obesity due to excess calories; I10 Essential (primary) hypertension; Z68.34 Body mass index [BMI] 34.0-34.9, adult; E78.9 Disorder of lipoprotein metabolism, unspecified; K64.8 Other hemorrhoids; G44.89 Other headache syndrome; I49.3 Ventricular premature depolarization
CPT/HCPCS: 93000; 99213; 99396

== ENCOUNTER → 2023-09-05 07:31 | Outpatient (REF) | payer BC, SELFPAY ==
--- NOTE | 2023-09-05 07:34 | HM_ITS ---
Conclusion: 1. Patient was monitored for total period of 1 day and 23 hours 2. Baseline was normal sinus rhythm with average heart of 89 beats per minute 3. Rare ectopy noted 4. No significant pauses noted 5. Patient reported 4 events of chest tightness/pain correlating with sinus rhythm MTDD
== END ==
LOC: HO.CARD 07:31
PROVIDERS: PCP Internal Medicine; Visit Provider Internal Medicine
DX: I49.3 Ventricular premature depolarization (principal); R94.31 Abnormal electrocardiogram [ECG] [EKG]
CPT/HCPCS: 93225

== ENCOUNTER → 2023-09-05 07:34 | Outpatient (BNV) | payer BC, SELFPAY | PROVIDERS: PCP Internal Medicine; Visit Provider Internal Medicine Cardiovascular Disease | DX: R07.9 Chest pain, unspecified (principal); R94.31 Abnormal electrocardiogram [ECG] [EKG] | CPT/HCPCS: 93227 ==

== ENCOUNTER 2023-09-13 08:01 | Outpatient (AMB) | payer BC, SELFPAY ==
--- NOTE | 2023-09-13 08:06 | A.OFFPC_ITS ---
Intake Visit Reasons: Discuss Holter Report~ Compensation Consultant Required: No Allergies Tetanus Vaccines and Toxoid Allergy (Mild, Verified 09/13/23 08:06) Unknown diphtheria,pertussis (acell),tetanu Allergy (Unknown, Verified 09/13/23 08:06) Unknown Medication List - Last Reconciled 09/13/23 by Nader Parry MD albuterol sulfate 90 mcg/actuation (Ventolin HFA) 1 inh inhalation QID PRN 30 days amitriptyline 25 mg PO BEDTIME 30 days fenofibrate nanocrystallized 145 mg PO DAILY 90 days lisinopril 20 mg PO DAILY 90 days Tobacco use date assessed: 08/15/23 Dental Screening Dental Screen Date: 09/13/23 Did you have a dental visit in the last 12 months?: Yes Did you have a dental problem in the last 6 months where you did not have access to dental care?: No Was dental information given to patient?: Patient has dentist HPI Discuss Holter Report~ HPI Details Patient is a 52-year-old gentleman this is a telemedicine video conference Patient was seen few days ago when he complained of feeling chest pressure at night with some palpitations We did the EKG in the office which showed single PVC So we ordered Holter monitor and the report no significant arrhythmia, He did reported 4 episodes of chest discomfort which was correlated with sinus rhythm We talked about dyspepsia at acidic foods spicy foods, I would recommend that heat take Pepcid or omeprazole [id number] and see if he feels better His headaches have improved, he is not taking amitriptyline 25 mg as a preventive medication. Patient is tolerating medication no side effects, I have sent refill for 90 days. [facility] Medical History Diverticular disease Internal hemorrhoid PONV (postoperative nausea and vomiting) Colon cancer screening Surgical History Hx of colonoscopy History of surgery Family History Mother No problems noted. Other Substance use disorder Social History Housing: House Are you a primary respiratory care assistant to a significant other at home: No Do you presently have visiting nurse or other home services: No Patient Tobacco Use Status: Former Tobacco user e-Cigarette/Vaping Use: Never Used service: No Current occupational status: employed Cognitive needs: No Hearing needs: No Vision needs: Yes Questionnaire Thrive Questionnaire Date Thrive assessed: 08/15/23 AUDIT C Alcohol Use Questionnaire (AUDIT-C) 1. How often do you have a drink containing alcohol?: Never 3. How often do you have six or more drinks on one occasion?: Never Total Score: 0 Score Reviewed/Action Taken: Yes DRAGAN-7 AMB Questionnaire DRAGAN-7 Date DRAGAN - 7 assessed: 08/15/23 Source: Developed by Drs. Nico Xiao, Denise Lagunas, Prabhakar Wright and colleagues, with an educational marixa from [employer]. Review of Systems Const Denies chills and Denies fever(s) ENT Denies epistaxis and Denies nasal discharge Resp Denies chest congestion, Denies cough and Denies hemoptysis GI Denies diarrhea and Denies nausea Skin/Breast Denies rash Neuro Reports no additional complaints Psych Reports no additional complaints Endo Reports no additional complaints Physical exam (Primary Care) Tobacco/Smoking Status: Tobacco use Status Tobacco use date assessed 08/15/23 09/13/23 08:07 Patient Tobacco Use Status Former Tobacco user 09/13/23 08:07 e-Cigarette/Vaping Use Never Used 09/13/23 08:07 Thrive Assessment: Date of Thrive Assessment Date Thrive assessed 08/15/23 09/13/23 08:07 Telehealth Telehealth Location of provider rendering services: practice address Location of patient: address on file Patient Identification confirmed using: Name, : Yes Telehealth method: video Patient verbally consented to treatment: Yes Patient verbally consented to billing insurance company: Yes Patient informed of any privacy concerns related to visit: Yes Assessment and Plan Assessment & Plan (1) Headache syndrome: Code(s): G44.89 - Other headache syndrome (2) Premature ventricular contraction: Code(s): I49.3 - Ventricular premature depolarization Plan Patient is a 52-year-old gentleman this is a telemedicine video conference Patient was seen few days ago when he complained of feeling chest pressure at night with some palpitations We did the EKG in the office which showed single PVC So we ordered Holter monitor and the report no significant arrhythmia, He did reported 4 episodes of chest discomfort which was correlated with sinus rhythm We talked about dyspepsia at acidic foods spicy foods, I would recommend that heat take Pepcid or omeprazole [id number] and see if he feels better His headaches have improved, he is not taking amitriptyline 25 mg as a preventive medication. Patient is tolerating medication no side effects, I have sent refill for 90 day s. Medications: Changed From amitriptyline 25 mg PO BEDTIME 30 days 30 tabs 0RF To amitriptyline 25 mg PO BEDTIME 90 tabs 0RF 90 days Coding Level of Care Code Tele Est Pt Level 3 (22832) Diagnoses Headache syndrome G44.89 Premature ventricular contraction I49.3 Comment 3 pre visit, 13 with patient 5 charting
== END 2023-09-13 11:36 | disposition home or self-care (01) ==
LOC: HO.HMGC 08:01
PROVIDERS: PCP Internal Medicine; Visit Provider Internal Medicine
DX: G44.89 Other headache syndrome (principal); I49.3 Ventricular premature depolarization
CPT/HCPCS: 99213

== ENCOUNTER 2024-02-12 07:47 | Outpatient (REF) | payer BC, SELFPAY ==
[2024-02-12 10:43] LABS: Alanine Aminotransferase 69 U/L (0-40); Albumin Level 3.9 g/dL (3.5-5.0); Alkaline Phosphatase 88 U/L (39-117); Anion Gap 12 (12-20); Aspartate Amino Transferase 44 U/L (5-37); Bilirubin Total 0.6 mg/dL (0.0-1.0); Blood Urea Nitrogen 12 mg/dL (9-16); Calcium 8.9 mg/dL (8.4-10.2); Carbon Dioxide 24 mmol/L (22-29); Chloride 107 mmol/L (96-108); Cholesterol 191 mg/dL (<200); Estimated Glomerular Filt Rate > 60; Glucose Fasting 109 mg/dL (60-99); Glucose Random 108 mg/dL (60-115); HDL Cholesterol 26 mg/dL (>40); Potassium 3.4 mmol/L (3.3-5.1); Sodium 140 mmol/L (135-145); Total Protein 7.3 g/dL (6.5-8.0); Triglycerides 518 mg/dL (<150)
[2024-02-15 06:09] LABS: LDL Cholesterol Direct 95 mg/dL (<100)
== END 2024-02-12 07:48 | disposition home or self-care (01) ==
LOC: HO.HMGCLDS 07:47
PROVIDERS: PCP Internal Medicine; Visit Provider Internal Medicine
DX: Z00.01 Encounter for general adult medical examination with abnormal findings (principal); E78.9 Disorder of lipoprotein metabolism, unspecified; I10 Essential (primary) hypertension; E66.09 Other obesity due to excess calories; H91.90 Unspecified hearing loss, unspecified ear; K64.8 Other hemorrhoids
CPT/HCPCS: 36415; 80053; 80061; 83721

== ENCOUNTER 2024-02-15 14:25 | Outpatient (AMB) | payer BC, SELFPAY ==
--- NOTE | 2024-02-15 14:26 | MHC.PC.OV ---
Vital Signs 02/15/24 14:27 Height 5 ft 9.5 in Weight 235 lb BMI 34.2 BP 166/118 H Blood Pressure Location Lt brachial Position Sitting Pulse 87 Pulse Source Pulse Oximeter Pulse Oximetry (%) 99 Oxygen Delivery Method Room Air Intake Visit Reasons: 6 month follow up Allergies Tetanus Vaccines and Toxoid Allergy (Mild, Verified 02/15/24 14:27) Unknown diphtheria,pertussis (acell),tetanu Allergy (Unknown, Verified 02/15/24 14:27) Unknown Medication List - Last Reconciled 02/15/24 by Nader Parry MD albuterol sulfate 90 mcg/actuation (Ventolin HFA) 1 inh inhalation QID PRN 30 days amitriptyline 25 mg PO BEDTIME 90 days fenofibrate nanocrystallized 145 mg PO DAILY 90 days lisinopril 20 mg PO DAILY 90 days Tobacco use date assessed: 02/15/24 Dental Screening Dental Screen Date: 02/15/24 Did you have a dental visit in the last 12 months?: Yes Did you have a dental problem in the last 6 months where you did not have access to dental care?: No Was dental information given to patient?: Patient has dentist HPI 6 month follow up HPI Details Patient is a 53-year-old gentleman came in today for his regular follow-up appointment Patient ran out of his medication in December and since then he has not taken them He said he ask pharmacy for refills but was not provided with any medications Advised patient to give us a call next time if pharmacy does not give him the medication But he can not just stop taking the medication His blood pressure is 166/118 He is also not monitoring it at home I am increasing his lisinopril to 30 mg patient was advised to start monitoring blood pressure at home If it continued to run above 140 systolic he is to give me a call Labs done recently shows triglyceride level above 500 Patient has not taken his fenofibrate either His fasting sugar came back at 109 We talked about the diet today, I will be booking him appointment with the dietitian Patient also need to lose weight BMI is 34.2 Headaches have improved patient has figured out what was causing the headache It tells me that if he is exposed to smoke that triggers the headache, he is still taking amitriptyline as needed only Allergies are stable Follow-up 3 months labs to be repeated again in 3 months [facility] Medical History Diverticular disease Internal hemorrhoid PONV (postoperative nausea and vomiting) Colon cancer screening Surgical History Hx of colonoscopy History of surgery Family History Mother No problems noted. Other Substance use disorder Social History Housing: House Are you a primary career resource specialist to a significant other at home: No Do you presently have visiting nurse or other home services: No Patient Tobacco Use Status: Former Tobacco user e-Cigarette/Vaping Use: Never Used service: No Current occupational status: employed Cognitive needs: No Hearing needs: No Vision needs: Yes Questionnaire PHQ-9 Over the last 2 weeks, how often have you been bothered by any of the following problems? 1. Little interest or pleasure in doing things: not at all 2. Feeling down, depressed, or hopeless: not at all 3. Trouble falling or staying asleep, or sleeping too much: several days 4. Feeling tired or having little energy: several days 5. Poor appetite or overeating: not at all 6. Feeling bad about yourself - or that you are a failure or have let yourself or your family down: not at all 7. Trouble concentrating on things, such as reading the newspaper or watching television: not at all 8. Moving or speaking so slowly that other people could have noticed. Or the opposite - being so fidgety or restless that you have been moving around a lot more than usual: not at all 9. Thoughts that you would be better off or of hurting yourself in some way: not at all Total score: 2 Depression Screening Interpretation: Negative Depression Screening Done: Yes 54303 - PHQ-9 Billing: Yes Source: Developed by Drs. Nico Xiao, Denise Lagunas, Prabhakar Wright and colleagues, with an educational marixa from [employer]. Thrive Questionnaire Date Thrive assessed: 02/15/24 I am a: Patient What is your living situation today?: I have a steady place to live Within the past 12 months, did the food you bought not last and you didn't have the money to get more?: Never true Within the past 12 months, did you worry whether your food would run out before you got money to buy more?: Never true Do you have trouble paying for medicines?: No Do you have trouble getting transportation to medical appointments?: No Do you have trouble paying your heating and electricity bill?: No Do you have trouble taking care of your child, family member or friend?: No Do you have trouble with day-to-day activities such as bathing, preparing meals, shopping, managing finances, etc.?: No Are you currently unemployed and looking for a job?: No Are you interested in more education?: No Please select the resources that you would like help with: Housing/Jail Currently or been in a relationship where the following occur: No concerns reported THRIVE Score: 0 AUDIT C Alcohol Use Questionnaire (AUDIT-C) 1. How often do you have a drink containing alcohol?: Never 3. How often do you have six or more drinks on one occasion?: Never Total Score: 0 Score Reviewed/Action Taken: Yes DRAGAN-7 AMB Questionnaire DRAGAN-7 Date DRAGAN - 7 assessed: 02/15/24 Feeling nervous, anxious, or on edge: 0 = Not at all Not being able to stop or control worryin = Not at all Worrying too much about different things: 0 = Not at all Trouble relaxin = Not at all Being so restless that it is hard to sit still: 0 = Not at all Becoming easily annoyed or irritable: 0 = Not at all Feeling afraid as if something awful might happen: 0 = Not at all Total DRAGAN-7 score (0-4 normal; 5-9 mild; 10-14 moderate; 15-21 severe): 0 Source: Developed by Drs. Nico Xiao, Denise Lagunas, Prabhakar Wright and colleagues, with an educational marixa from [employer]. DRAGAN-7 Assessment Billing DRAGAN-7 Assessment Tool: DRAGAN-7 Assessment 58295 Review of Systems Const Denies chills and Denies fever(s) ENT Denies epistaxis and Denies nasal discharge Card Denies chest pain Resp Denies chest congestion, Denies cough and Denies hemoptysis GI Denies diarrhea and Denies nausea Skin/Breast Denies rash Neuro Reports no additional complaints Psych Reports no additional complaints Endo Reports no additional complaints Physical exam (Primary Care) Vital Signs: Last Vital Signs Pulse 87 02/15/24 14:27 BP 166/118 H 02/15/24 14:27 Pulse Ox 99 02/15/24 14:27 Oxygen Delivery Method Room Air 02/15/24 14:27 BMI result Body Mass Index 34.2 Tobacco/Smoking Status: Tobacco use Status Tobacco use date assessed 02/15/24 02/15/24 14:27 Patient Tobacco Use Status Former Tobacco user 02/15/24 14:27 e-Cigarette/Vaping Use Never Used 02/15/24 14:27 PHQ-9: PHQ-9 Score PHQ-9: Total score 2 02/15/24 14:27 Depression Screening Interpretation: Negative Thrive Assessment: Date of Thrive Assessment Date Thrive assessed 02/15/24 02/15/24 14:27 Currently or been in a relationship where the following occur: No concerns reported Const General: cooperative, comfortable and no acute distress Orientation/consciousness: patient oriented x3 HENMT Head: Yes normocephalic Eyes General: appearance normal, both eyes and all related structures Neck Neck: Yes supple Resp Effort & Inspection: normal respiratory effort, no cough and no stridor Cardio Rhythm: regular rhythm Heart sounds: S1 normal heart sound present and S2 normal heart sound present Skin General skin exam: turgor normal Neuro General: patient oriented x3, tone normal and moves all extremities Extrem Right lower extremity: no edema Left lower extremity: no edema Assessment and Plan Assessment & Plan (1) Hypertension, essential: Code(s): I10 - Essential (primary) hypertension (2) Lipid disorder: Code(s): E78.9 - Disorder of lipoprotein metabolism, unspecified (3) Obesity due to excess calories: Code(s): E66.09 - Other obesity due to excess calories Qualifiers: Obesity classification: adult class 1 (BMI 30 - 34.9) Serious obesity comorbidity presence: with serious comorbidity Body mass index: BMI 34.0-34.9 Qualified Code(s): E66.09 - Other obesity due to excess calories; Z68.34 - Body mass index [BMI] 34.0-34.9, adult (4) Headache syndrome: Code(s): G44.89 - Other headache syndrome (5) Asthma due to seasonal allergies: Code(s): J45.909 - Unspecified asthma, uncomplicated Plan Patient is a 53-year-old gentleman came in today for his regular follow-up appointment Patient ran out of his medication in December and since then he has not taken them He said he ask pharmacy for refills but was not provided with any medications Advised patient to give us a call next time if pharmacy does not give him the medication But he can not just stop taking the medication His blood pressure is 166/118 He is also not monitoring it at home I am increasing his lisinopril to 30 mg patient was advised to start monitoring blood pressure at home If it continued to run above 140 systolic he is to give me a call Labs done recently shows triglyceride level above 500 Patient has not taken his fenofibrate either His fasting sugar came back at 109 We talked about the diet today, I will be booking him appointment with the dietitian Patient also need to lose weight BMI is 34.2 Headaches have improved patient has figured out what was causing the headache It tells me that if he is exposed to smoke that triggers the headache, he is still taking amitriptyline as needed only Allergies are stable Follow-up 3 months labs to be repeated again in 3 month Orders: Orders Complete Blood Count Auto Diff 3 Months E66.09 - Other obesity due to excess calories, E78.9 - Disorder of lipoprotein metabolism, unspecified, G44.89 - Other headache syndrome, I10 - Essential (primary) hypertension, J45.909 - Unspecified asthma, uncomplicated, Z68.34 - Body mass index [BMI] 34.0-34.9, adult Lipid Panel 3 Months E66.09 - Other obesity due to excess calories, E78.9 - Disorder of lipoprotein metabolism, unspecified, G44.89 - Other headache syndrome, I10 - Essential (primary) hypertension, J45.909 - Unspecified asthma, uncomplicated, Z68.34 - Body mass index [BMI] 34.0-34.9, adult Hemoglobin A1c 3 Months E66.09 - Other obesity due to excess calories, E78.9 - Disorder of lipoprotein metabolism, unspecified, G44.89 - Other headache syndrome, I10 - Essential (primary) hypertension, J45.909 - Unspecified asthma, uncomplicated, Z68.34 - Body mass index [BMI] 34.0-34.9, adult Comprehensive [place]. Panel Fast 3 Months E66.09 - Other obesity due to excess calories, E78.9 - Disorder of lipoprotein metabolism, unspecified, G44.89 - Other headache syndrome, I10 - Essential (primary) hypertension, J45.909 - Unspecified asthma, uncomplicated, Z68.34 - Body mass index [BMI] 34.0-34.9, adult TSH reflex Free T4 3 Months E66.09 - Other obesity due to excess calories, E78.9 - Disorder of lipoprotein metabolism, unspecified, G44.89 - Other headache syndrome, I10 - Essential (primary) hypertension, J45.909 - Unspecified asthma, uncomplicated, Z68.34 - Body mass index [BMI] 34.0-34.9, adult Medications: Changed From lisinopril 20 mg PO DAILY 90 days 90 tabs 0RF I10 - Essential (primary) hypertension To lisinopril 30 mg PO DAILY 90 days 90 tabs 0RF I10 - Essential (primary) hypertension Refilled fenofibrate nanocrystallized 145 mg PO DAILY 90 days 90 tabs 1RF E78.9 - Disorder of lipoprotein metabolism, unspecified Coding Level of Care Code Est Pt Level 4 (94696) Diagnoses Hypertension, essential I10 Lipid disorder E78.9 Class 1 obesity due to excess calories with serious comorbidity and body mass index (BMI) of 34.0 to 34.9 in adult E66.09; Z68.34 Obesity classification: adult class 1 (BMI 30 - 34.9) Serious obesity comorbidity presence: with serious comorbidity Body mass index: BMI 34.0-34.9 Headache syndrome G44.89 Asthma due to seasonal allergies J45.909 Additional Codes DRAGAN-7 Assessment Billing - DRAGAN-7 Assessment Tool: DRAGAN-7 Assessment 43052 ([id number])
[2024-02-15 14:27] VITALS: BP 166/118; PULSE 87; O2SAT 99; BMI 34.2
== END 2024-02-15 15:12 | disposition home or self-care (01) ==
PROVIDERS: PCP Internal Medicine; Visit Provider Internal Medicine
DX: I10 Essential (primary) hypertension (principal); E78.9 Disorder of lipoprotein metabolism, unspecified; E66.09 Other obesity due to excess calories; Z68.34 Body mass index [BMI] 34.0-34.9, adult; G44.89 Other headache syndrome; J45.909 Unspecified asthma, uncomplicated
CPT/HCPCS: 99214

== ENCOUNTER 2024-04-26 09:13 | Outpatient (AMB) | payer BC, SELFPAY ==
[2024-04-26 09:37] VITALS: BP 142/100; PULSE 98; TEMP 36.7; O2SAT 98; BMI 34.8
--- NOTE | 2024-04-26 09:37 | MHC.OFFWIV ---
Intake Vital Signs 04/26/24 09:37 Height 5 ft 9.5 in Weight 239 lb BMI 34.8 BP 142/100 H Blood Pressure Location Rt brachial Position Sitting Pulse 98 Temp 98.0 F Temp Source Oral Pulse Oximetry (%) 98 Intake Visit Reasons: EP Glands under chin LT side pain Intake Note: Pt is here today c/o Lt ear pressure and Lt side of gland pain Patient Tobacco Use Status: Former Tobacco user Allergies Tetanus Vaccines and Toxoid Allergy (Mild, Verified 05/21/24 15:15) Unknown diphtheria,pertussis (acell),tetanu Allergy (Unknown, Verified 05/21/24 15:15) Unknown HPI EP Glands under chin LT side pain HPI Details Patient is a 53-year-old male comes to the walk-in clinic complaining of mild pressure to his left ear for the last few days, and started to notice swelling and pressure to the area under the left side of his chin. No PFSH Medical History Diverticular disease Internal hemorrhoid PONV (postoperative nausea and vomiting) Colon cancer screening Surgical History Hx of colonoscopy History of surgery Family History Mother No problems noted. Other Substance use disorder Social History Housing: House Are you a primary skin care specialist to a significant other at home: No Do you presently have visiting nurse or other home services: No Patient Tobacco Use Status: Former Tobacco user e-Cigarette/Vaping Use: Never Used service: No Current occupational status: employed Cognitive needs: No Hearing needs: No Vision needs: Yes Review of Systems Const All systems reviewed & are unremarkable except as noted in HPI and below Physical Exam Vital Signs: Last Vital Signs Temp 98.0 F 04/26/24 09:37 Pulse 98 04/26/24 09:37 BP 142/100 H 04/26/24 09:37 Pulse Ox 98 04/26/24 09:37 BMI result Body Mass Index 34.8 Results AMB Rapid Strep AMB Rapid Strep Negative Last Edit by Shanthi Marcial CMA on 04/26/24 09:55 Results Reviewed Results Reviewed: Laboratory Last Values Strep Scn Rapid Clinic Negative 04/26/24 09:50 Assessment & Plan Assessment & Plan Orders: Orders SARS-CoV2/FLU/RSV 04/26/24 J06.9 - Acute upper respiratory infection, unspecified [facility] Covid-19 Ag 04/26/24 Z20.822 - Contact with and (suspected) exposure to COVID-19 AMB Rapid Strep Screen 04/26/24 Z13.9 - Encounter for screening, unspecified Coding
== END 2024-04-26 11:30 | disposition home or self-care (01) ==
PROVIDERS: PCP Internal Medicine; Visit Provider Physician Assistant Medical
DX: Z13.9 Encounter for screening, unspecified (principal)

== ENCOUNTER 2024-04-26 09:13 | Outpatient (REF) | payer BC, SELFPAY ==
[2024-04-26 12:29] LABS: Influenza A PCR NEGATIVE (Negative); Influenza B PCR NEGATIVE (Negative); Resp Syncy Virus RNA Qual PCR NEGATIVE (Negative); SARS COV2 PCR INHOUSE NEGATIVE (Negative)
== END 2024-04-26 09:14 | disposition home or self-care (01) ==
LOC: HO.LAB 09:13
PROVIDERS: PCP Internal Medicine; Visit Provider Physician Assistant Medical
DX: J06.9 Acute upper respiratory infection, unspecified (principal)
CPT/HCPCS: 0241U; 87880

== ENCOUNTER 2024-04-26 10:09 | Outpatient (REF) | payer BC, SELFPAY ==
[2024-04-26 10:49] LABS: Binax Lot number: 869104; Binax Now Covid-19 Ag Negative (Negative); Binax Performed by: PAULP
[2024-04-26 10:50] LABS: Binax Internal Control QC Valid
== END 2024-04-26 10:10 | disposition home or self-care (01) ==
LOC: HO.HMGCLDS 10:09
PROVIDERS: PCP Internal Medicine; Visit Provider Physician Assistant Medical
DX: Z20.822 Contact with and (suspected) exposure to COVID-19 (principal)
CPT/HCPCS: 87811

== ENCOUNTER 2024-05-10 11:02 | Outpatient (REF) | payer BC, SELFPAY ==
[2024-05-10 12:44] LABS: MANUAL DIFF FLAG NO
[2024-05-10 12:47] LABS: Basophils Absolute Auto 0.1 X10*3/uL (0.0-0.2); Basophils Percent Auto 0.5 % (0-2); Eosinophils Absolute Auto 0.1 X10*3/uL (0.0-0.4); Hematocrit 48.7 % (42.0-52.0); Hemoglobin 16.7 g/dl (14.0-18.0); Imm Gran Abs Auto 0.01 X10*3/uL (0.00-0.03); Imm Gran Pct Auto 0.1 % (0.0-0.4); Lymphocytes Absolute Auto 2.6 X10*3/uL (1.2-4.9); Lymphocytes Percent Auto 27.5 % (20-40); Mean Corpuscular HGB Conc 34.3 g/dl (31.0-36.0); Mean Corpuscular Hemoglobin 30.9 pg (27.0-33.0); Mean Corpuscular Volume 90.2 fL (80.0-98.0); Mean Platelet Volume 10.1 fL (9.4-12.4); Monocytes Absolute Auto 0.7 X10*3/uL (0.1-1.2); Neutrophils Percent Auto 63.9 % (45-73); Platelet Count 363 X10*3/uL (160-400); Red Cell Distribution Width 14.6 % (11.0-16.0); White Blood Count 9.4 X10*3/uL (4.8-10.8)
[2024-05-10 13:00] LABS: Estimated Average Glucose 111 mg/dL; Hemoglobin A1C 147.9728 umol/L; Hemoglobin A1c % 5.5 % (<6.0); Total Hemoglobin (HGBA1C) 4058.1738 umol/L
[2024-05-10 13:02] LABS: Alanine Aminotransferase 42 U/L (0-40); Alkaline Phosphatase 63 U/L (39-117); Anion Gap 10 (12-20); Aspartate Amino Transferase 26 U/L (5-37); Bilirubin Total 0.6 mg/dL (0.0-1.0); Blood Urea Nitrogen 17 mg/dL (9-16); Carbon Dioxide 25 mmol/L (22-29); Chloride 110 mmol/L (96-108); Cholesterol 188 mg/dL (<200); Estimated Glomerular Filt Rate > 60; Glucose Fasting 97 mg/dL (60-99); HDL Cholesterol 31 mg/dL (>40); LDL Cholesterol Calculated 115 mg/dL (<100); Potassium 3.8 mmol/L (3.3-5.1); Sodium 141 mmol/L (135-145); Total Protein 7.1 g/dL (6.5-8.0); Triglycerides 210 mg/dL (<150)
[2024-05-10 13:18] LABS: TSH reflex Free T4 0.54 uIU/mL (0.32-4.0)
== END 2024-05-10 11:03 | disposition home or self-care (01) ==
LOC: HO.HMGCLDS 11:02
PROVIDERS: PCP Internal Medicine; Visit Provider Internal Medicine
DX: I10 Essential (primary) hypertension (principal); E78.9 Disorder of lipoprotein metabolism, unspecified; G44.89 Other headache syndrome; J45.909 Unspecified asthma, uncomplicated; E66.09 Other obesity due to excess calories; Z68.34 Body mass index [BMI] 34.0-34.9, adult
CPT/HCPCS: 36415; 80053; 80061; 83036; 84443; 85025

== ENCOUNTER 2024-05-21 15:11 | Outpatient (AMB) | payer BC, SELFPAY ==
[2024-05-21 15:15] VITALS: BP 152/94; PULSE 108; O2SAT 98; BMI 34.8
--- NOTE | 2024-05-21 15:15 | MHC.PC.OV ---
Vital Signs 05/21/24 15:15 Height 5 ft 9.5 in Weight 239 lb BMI 34.8 BP 152/94 H Blood Pressure Location Rt brachial Position Sitting Pulse 108 H Pulse Source Pulse Oximeter Pulse Oximetry (%) 98 Oxygen Delivery Method Room Air Intake Visit Reasons: 3 Month F/U Allergies Tetanus Vaccines and Toxoid Allergy (Mild, Verified 05/21/24 15:15) Unknown diphtheria,pertussis (acell),tetanu Allergy (Unknown, Verified 05/21/24 15:15) Unknown Medication List - Last Reconciled 05/21/24 by Nader Parry MD albuterol sulfate 90 mcg/actuation (Ventolin HFA) 1 inh inhalation QID PRN 30 days amitriptyline 25 mg PO BEDTIME 90 days fenofibrate nanocrystallized 145 mg PO DAILY 90 days lisinopril 30 mg PO DAILY 90 days Tobacco use date assessed: 05/21/24 Dental Screening Dental Screen Date: 05/21/24 Did you have a dental visit in the last 12 months?: Yes Did you have a dental problem in the last 6 months where you did not have access to dental care?: No Was dental information given to patient?: Patient has dentist HPI 3 Month F/U HPI Details Patient is a 53-year-old gentleman came in today for his regular follow-up appointment Patient is having stressful day today His blood pressure continued to be elevated He is taking lisinopril 40, at home he is monitoring it and tells me that more them number is above 90 most of the time I am adding hydrochlorothiazide 25 mg to lisinopril 40 mg Patient is to continue monitoring blood pressure at home Labs done recently reviewed Triglyceride level has improved with fenofibrate he is to continue that Headaches are better patient has stopped taking amitriptyline He has appointment coming up in July for follow-up Need to lose weight BMI is elevated. [facility] Medical History Diverticular disease Internal hemorrhoid PONV (postoperative nausea and vomiting) Colon cancer screening Surgical History Hx of colonoscopy History of surgery Family History Mother No problems noted. Other Substance use disorder Social History Housing: House Are you a primary medicare biller to a significant other at home: No Do you presently have visiting nurse or other home services: No Patient Tobacco Use Status: Former Tobacco user e-Cigarette/Vaping Use: Never Used service: No Current occupational status: employed Cognitive needs: No Hearing needs: No Vision needs: Yes Questionnaire Thrive Questionnaire Date Thrive assessed: 05/21/24 I am a: Patient What is your living situation today?: I have a steady place to live Within the past 12 months, did the food you bought not last and you didn't have the money to get more?: Never true Within the past 12 months, did you worry whether your food would run out before you got money to buy more?: Never true Do you have trouble paying for medicines?: No Do you have trouble getting transportation to medical appointments?: No Do you have trouble paying your heating and electricity bill?: No Do you have trouble taking care of your child, family member or friend?: No Do you have trouble with day-to-day activities such as bathing, preparing meals, shopping, managing finances, etc.?: No Are you currently unemployed and looking for a job?: No Are you interested in more education?: No Please select the resources that you would like help with: None Currently or been in a relationship where the following occur: No concerns reported THRIVE Score: 0 DRAGAN-7 AMB Questionnaire DRAGAN-7 Date DRAGAN - 7 assessed: 02/15/24 Source: Developed by Drs. Nico Xiao, Denise Lagunas, Prabhakar Wright and colleagues, with an educational marixa from [employer]. Review of Systems Const Denies chills and Denies fever(s) ENT Denies epistaxis and Denies nasal discharge Card Denies chest pain Resp Denies chest congestion, Denies cough and Denies hemoptysis GI Denies diarrhea and Denies nausea Skin/Breast Denies rash Neuro Reports no additional complaints Psych Reports no additional complaints Endo Reports no additional complaints Physical exam (Primary Care) Vital Signs: Last Vital Signs Pulse 108 H 05/21/24 15:15 BP 152/94 H 05/21/24 15:15 Pulse Ox 98 05/21/24 15:15 Oxygen Delivery Method Room Air 05/21/24 15:15 BMI result Body Mass Index 34.8 Tobacco/Smoking Status: Tobacco use Status Tobacco use date assessed 05/21/24 05/21/24 15:19 Patient Tobacco Use Status Former Tobacco user 05/21/24 15:19 e-Cigarette/Vaping Use Never Used 05/21/24 15:19 Thrive Assessment: Date of Thrive Assessment Date Thrive assessed 05/21/24 05/21/24 15:19 Currently or been in a relationship where the following occur: No concerns reported Const General: cooperative, comfortable and no acute distress Orientation/consciousness: patient oriented x3 HENMT Head: Yes normocephalic Eyes General: appearance normal, both eyes and all related structures Neck Neck: Yes supple Resp Effort & Inspection: normal respiratory effort, no cough and no stridor Cardio Rhythm: regular rhythm Heart sounds: S1 normal heart sound present and S2 normal heart sound present Skin General skin exam: turgor normal Neuro General: patient oriented x3, tone normal and moves all extremities Extrem Right lower extremity: no edema Left lower extremity: no edema Coding Level of Care Code Est Pt Level 3 (40591) Diagnoses Hypertension, essential I10 Lipid disorder E78.9 Class 1 obesity due to excess calories with serious comorbidity and body mass index (BMI) of 34.0 to 34.9 in adult E66.09; Z68.34 Obesity classification: adult class 1 (BMI 30 - 34.9) Serious obesity comorbidity presence: with serious comorbidity Body mass index: BMI 34.0-34.9 Assessment & Plan Assessment & Plan (1) Hypertension, essential: Code(s): I10 - Essential (primary) hypertension Category: Medical (2) Lipid disorder: Code(s): E78.9 - Disorder of lipoprotein metabolism, unspecified Category: Medical (3) Obesity due to excess calories: Code(s): E66.09 - Other obesity due to excess calories Category: Medical Qualifiers: Obesity classification: adult class 1 (BMI 30 - 34.9) Serious obesity comorbidity presence: with serious comorbidity Body mass index: BMI 34.0-34.9 Qualified Code(s): E66.09 - Other obesity due to excess calories; Z68.34 - Body mass index [BMI] 34.0-34.9, adult Plan Patient is a 53-year-old gentleman came in today for his regular follow-up appointment Patient is having stressful day today His blood pressure continued to be elevated He is taking lisinopril 40, at home he is monitoring it and tells me that more them number is above 90 most of the time I am adding hydrochlorothiazide 25 mg to lisinopril 40 mg Patient is to continue monitoring blood pressure at home Labs done recently reviewed Triglyceride level has improved with fenofibrate he is to continue that Headaches are better patient has stopped taking amitriptyline He has appointment coming up in July for follow-up Need to lose weight BMI is elevated. Medications: New hydrochlorothiazide 25 mg PO QAM 90 tabs 0RF 90 days Refilled lisinopril 30 mg PO DAILY 90 tabs 0RF 90 days I10 - Essential (primary) hypertension fenofibrate nanocrystallized 145 mg PO DAILY 90 tabs 1RF 90 days E78.9 - Disorder of lipoprotein metabolism, unspecified Discontinued amitriptyline Discontinued Reason: Doctor's Order 25 mg PO BEDTIME 90 days 90 tabs 1RF
== END 2024-05-21 16:27 | disposition home or self-care (01) ==
PROVIDERS: PCP Internal Medicine; Visit Provider Internal Medicine
DX: I10 Essential (primary) hypertension (principal); E78.9 Disorder of lipoprotein metabolism, unspecified; E66.09 Other obesity due to excess calories; Z68.34 Body mass index [BMI] 34.0-34.9, adult

== ENCOUNTER → 2024-05-21 15:11 | Outpatient (BNVA) | payer BC, SELFPAY | PROVIDERS: PCP Internal Medicine; Visit Provider Internal Medicine ==

== ENCOUNTER 2024-08-19 10:32 | Outpatient (AMB) | payer BC, SELFPAY ==
[2024-08-19 10:35] VITALS: BP 128/90; PULSE 82; O2SAT 98; BMI 35.7
--- NOTE | 2024-08-19 10:35 | A.OFFPC_ITS ---
Vital Signs 08/19/24 10:35 Height 5 ft 9.5 in Weight 245 lb BMI 35.7 BP 128/90 H Blood Pressure Location Rt brachial Position Sitting Pulse 82 Pulse Source Pulse Oximeter Pulse Oximetry (%) 98 Oxygen Delivery Method Room Air Intake Visit Reasons: annual PE Allergies Tetanus Vaccines and Toxoid Allergy (Mild, Verified 08/19/24 10:35) Unknown diphtheria,pertussis (acell),tetanu Allergy (Unknown, Verified 08/19/24 10:35) Unknown Medication List - Last Reconciled 08/19/24 by Nader Parry MD albuterol sulfate 90 mcg/actuation (Ventolin HFA) 1 inh inhalation QID PRN 30 days fenofibrate nanocrystallized 145 mg PO DAILY 90 days hydrochlorothiazide 25 mg PO QAM 90 days lisinopril 30 mg PO DAILY 90 days Tobacco use date assessed: 08/19/24 Dental Screening Dental Screen Date: 08/19/24 Did you have a dental problem in the last 6 months where you did not have access to dental care?: No HPI annual PE HPI Details Physical exam appointment - The patient is a 53-year-old male pres enting for physical exam complaining of pain left ear - Essential Hypertension is well-managed with lisinopril and hydrochlorothiazide, with home monitoring showing stable readings. - Dyslipidemia management includes Fenof ibrate, - Displays a heightened sensitivity to s pecific odors, such as those from cooking and smoke, causing headaches that the patient manages by avoiding trigger environments. - Reports sharp pain in the left ear, oc casionally radiating to the jaw, persisting for a week, secondary to a significant history of ear infections and surgical interventions in his younger years - Born with hearing impairment, underwen t nine surgeries in childhood including artificial tubes, leading to ear scarring. - Vast personal and familial history of cancer, with specific inquiries on how cancer diagnoses in family have related to patients' health considerations. Health Maintenance - Colonoscopy: Conducted in 2021 with no rmal results, repeat recommended in 2031. - Blood Pressure: Regular home monitorin g with good control reported. - Thyroid function tests: Reportedly nor mal. - Regular application of sunscreen (SPF 50) during sun exposure to prevent skin damage. Medications - Fenofibrate: Taken for dyslipidemia ma nagement. - Hydrochlorothiazide 25 mg: Taken for h ypertension. - Lisinopril 30 mg: Taken for hypertensi on management. 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 - Labs are recommended to be done prior to the next visit, which should be fasting labs. - Continue to monitor blood pressure at home. - Schedule and attend blood tests when c onvenient, preferably on a Sunday, to accommodate fasting requirements. Review of Systems - Ear/Nose/Throat: Reports sharp pain in the left ear with possible radiation to the jaw. Denies fever. - Dermatologic: Skin noted to be dry but non-itchy, potentially due to chronic sun exposure. - General: No fever no chills - Neurological: No headaches no dizzin ess - Cardiovascular: No syncope, no chest pain, no palpitations - Gastrointestinal: No nausea vomiting or diarrhea - Endocrine: No polyuria polydipsia no heat intolerance - Genitourinary: No dysuria Physical Exam General: Cooperative, healthy appearing, comfortable, no acute distress Orientation: Patient oriented x3 Limitations: None Head: Normal to inspection Ears: Left ear inflamed from inside, mild to somewhat moderate sharp pain at times Nose: Normal external nose present Face and sinus: Normal facial exam Eyes: Appearance normal, extraocular movement intact pupils reactive Neck: Normal visual inspection and supple Respiratory: Normal respiratory effort and able to speak in complete sentences. Clear to auscultation, no stridor Cardiovascular: S1 and S2 GI: Normal to inspection. Soft to palpation and nontender Skin: Turgor normal, no acute findings, skin a little bit raw stock drier tender, chronic dryness Neuro: Patient oriented x3, motor sensory intact, balance intact, tandem pass Extremities: Normal to inspection [facility], [facility] Medical History Diverticular disease Internal hemorrhoid PONV (postoperative nausea and vomiting) Colon cancer screening Surgical History Hx of colonoscopy History of surgery Family History Mother No problems noted. Other Substance use disorder Social History Housing: House Are you a primary healthcare manager to a significant other at home: No Do you presently have visiting nurse or other home services: No Patient Tobacco Use Status: Former Tobacco user e-Cigarette/Vaping Use: Never Used service: No Current occupational status: employed Cognitive needs: No Hearing needs: No Vision needs: Yes Questionnaire PHQ-9 Over the last 2 weeks, how often have you been bothered by any of the following problems? 1. Little interest or pleasure in doing things: not at all 2. Feeling down, depressed, or hopeless: not at all 3. Trouble falling or staying asleep, or sleeping too much: several days 4. Feeling tired or having little energy: several days 5. Poor appetite or overeating: not at all 6. Feeling bad about yourself - or that you are a failure or have let yourself or your family down: not at all 7. Trouble concentrating on things, such as reading the newspaper or watching television: not at all 8. Moving or speaking so slowly that other people could have noticed. Or the opposite - being so fidgety or restless that you have been moving around a lot more than usual: not at all 9. Thoughts that you would be better off or of hurting yourself in some way: not at all Total score: 2 Depression Screening Interpretation: Negative Depression Screening Done: Yes 53831 - PHQ-9 Billing: Yes Source: Developed by Drs. Nico Xiao, Denise Lagunas, Prabhakar Wright and colleagues, with an educational marixa from [employer]. Thrive Questionnaire Date Thrive assessed: 08/19/24 I am a: Patient What is your living situation today?: I have a steady place to live Within the past 12 months, did the food you bought not last and you didn't have the money to get more?: Never true Within the past 12 months, did you worry whether your food would run out before you got money to buy more?: Never true Do you have trouble paying for medicines?: No Do you have trouble getting transportation to medical appointments?: No Do you have trouble paying your heating and electricity bill?: No Do you have trouble taking care of your child, family member or friend?: No Do you have trouble with day-to-day activities such as bathing, preparing meals, shopping, managing finances, etc.?: No Are you currently unemployed and looking for a job?: No Are you interested in more education?: No Please select the resources that you would like help with: None Currently or been in a relationship where the following occur: No concerns reported THRIVE Score: 0 AUDIT C Alcohol Use Questionnaire (AUDIT-C) 1. How often do you have a drink containing alcohol?: Never 3. How often do you have six or more drinks on one occasion?: Never Total Score: 0 Score Reviewed/Action Taken: Yes DRAGAN-7 AMB Questionnaire DRAGAN-7 Date DRAGAN - 7 assessed: 08/19/24 Feeling nervous, anxious, or on edge: 0 = Not at all Not being able to stop or control worryin = Not at all Worrying too much about different things: 0 = Not at all Trouble relaxin = Not at all Being so restless that it is hard to sit still: 0 = Not at all Becoming easily annoyed or irritable: 0 = Not at all Feeling afraid as if something awful might happen: 0 = Not at all Total DRAGAN-7 score (0-4 normal; 5-9 mild; 10-14 moderate; 15-21 severe): 0 Source: Developed by Drs. Nico Xiao, Denise Lagunas, Prabhakar Wright and colleagues, with an educational marixa from [employer]. DRAGAN-7 Assessment Billing DRAGAN-7 Assessment Tool: DRAGAN-7 Assessment 47148 Physical exam (Primary Care) Vital Signs: Last Vital Signs Pulse 82 08/19/24 10:35 BP 128/90 H 08/19/24 10:35 Pulse Ox 98 08/19/24 10:35 Oxygen Delivery Method Room Air 08/19/24 10:35 BMI result Body Mass Index 35.7 Tobacco/Smoking Status: Tobacco use Status Tobacco use date assessed 08/19/24 08/19/24 10:37 Patient Tobacco Use Status Former Tobacco user 08/19/24 10:37 e-Cigarette/Vaping Use Never Used 08/19/24 10:37 PHQ-9: PHQ-9 Score PHQ-9: Total score 2 08/19/24 11:00 Depression Screening Interpretation: Negative Thrive Assessment: Date of Thrive Assessment Date Thrive assessed 08/19/24 08/19/24 10:37 Currently or been in a relationship where the following occur: No concerns reported Coding Level of Care Code Est Pt Level 3 (10912) Est Pt Prev Care 40-64y(91333) Diagnoses Encounter for general adult medical examination with abnormal findings Z00.01 Infection of left ear H66.92 Hypertension, essential I10 Lipid disorder E78.9 Class 1 obesity due to excess calories with serious comorbidity and body mass index (BMI) of 34.0 to 34.9 in adult E66.09; Z68.34 Body mass index: BMI 34.0-34.9 Obesity classification: adult class 1 (BMI 30 - 34.9) Serious obesity comorbidity presence: with serious comorbidity Headache syndrome G44.89 Asthma due to seasonal allergies J45.909 Additional Codes DRAGAN-7 Assessment Billing - DRAGAN-7 Assessment Tool: DRAGAN-7 Assessment 50133 ([id number]) PHQ-9 - 67501 - PHQ-9 Billing: Yes ([id number]) Assessment & Plan Assessment & Plan (1) Encounter for general adult medical examination with abnormal findings: Code(s): Z00.01 - Encounter for general adult medical examination with abnormal findings Category: Medical (2) Infection of left ear: Code(s): H66.92 - Otitis media, unspecified, left ear Category: Medical (3) Hypertension, essential: Code(s): I10 - Essential (primary) hypertension Category: Medical (4) Lipid disorder: Code(s): E78.9 - Disorder of lipoprotein metabolism, unspecified Category: Medical (5) Obesity due to excess calories: Code(s): E66.09 - Other obesity due to excess calories Category: Medical Qualifiers: Body mass index: BMI 34.0-34.9 Obesity classification: adult class 1 (BMI 30 - 34.9) Serious obesity comorbidity presence: with serious comorbidity Qualified Code(s): E66.09 - Other obesity due to excess calories; Z68.34 - Body mass index [BMI] 34.0-34.9, adult (6) Headache syndrome: Code(s): G44.89 - Other headache syndrome Category: Medical (7) Asthma due to seasonal allergies: Code(s): J45.909 - Unspecified asthma, uncomplicated Category: Medical Plan Physical exam appointment - The patient is a 53-year-old male presenting for physical exam complaining of pain left ear - Essential Hypertension is well-managed with lisinopril and hydrochlorothiazide, with home monitoring showing stable readings. - Dyslipidemia management includes Fenofibrate, - Displays a heightened sensitivity to specific odors, such as those from cooking and smoke, causing headaches that the patient manages by avoiding trigger environments. - Reports sharp pain in the left ear, occasionally radiating to the jaw, persisting for a week, secondary to a significant history of ear infections and surgical interventions in his younger years - Born with hearing impairment, underwent nine surgeries in childhood including artificial tubes, leading to ear scarring. - Vast personal and familial history of cancer, with specific inquiries on how cancer diagnoses in family have related to patients' health considerations. Health Maintenance - Colonoscopy: Conducted in 2021 with normal results, repeat recommended in . - Blood Pressure: Regular home monitoring with good control reported. - Thyroid function tests: Reportedly normal. - Regular application of sunscreen (SPF 50) during sun exposure to prevent skin damage. Medications - Fenofibrate: Taken for dyslipidemia management. - Hydrochlorothiazide 25 mg: Taken for hypertension. - Lisinopril 30 mg: Taken for hypertension management. 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 - Labs are recommended to be done prior to the next visit, which should be fasting labs. - Continue to monitor blood pressure at home. - Schedule and attend blood tests when convenient, preferably on a Sunday, to accommodate fasting requirements. Orders: Orders Lipid Panel Today E66.09 - Other obesity due to excess calories, E78.9 - Disorder of lipoprotein metabolism, unspecified, G44.89 - Other headache syndrome, I10 - Essential (primary) hypertension, J45.909 - Unspecified asthma, uncomplicated, Z68.34 - Body mass index [BMI] 34.0-34.9, adult Complete Blood Count Auto Diff Today E66.09 - Other obesity due to excess calories, E78.9 - Disorder of lipoprotein metabolism, unspecified, G44.89 - Other headache syndrome, I10 - Essential (primary) hypertension, J45.909 - Unspecified asthma, uncomplicated, Z68.34 - Body mass index [BMI] 34.0-34.9, adult Comprehensive [place]. Panel Fast Today E66.09 - Other obesity due to excess calories, E78.9 - Disorder of lipoprotein metabolism, unspecified, G44.89 - Other headache syndrome, I10 - Essential (primary) hypertension, J45.909 - Unspecified asthma, uncomplicated, Z68.34 - Body mass index [BMI] 34.0-34.9, adult Complete Blood Count Auto Diff 5 Months E66.09 - Other obesity due to excess calories, E78.9 - Disorder of lipoprotein metabolism, unspecified, I10 - Essential (primary) hypertension, Z68.34 - Body mass index [BMI] 34.0-34.9, adult Comprehensive [place]. Panel Fast 5 Months E66.09 - Other obesity due to excess calories, E78.9 - Disorder of lipoprotein metabolism, unspecified, I10 - Essential (primary) hypertension, Z68.34 - Body mass index [BMI] 34.0-34.9, adult Lipid Panel 5 Months E66.09 - Other obesity due to excess calories, E78.9 - Disorder of lipoprotein metabolism, unspecified, I10 - Essential (primary) hypertension, Z68.34 - Body mass index [BMI] 34.0-34.9, adult Medications: New azithromycin Take 2 tablets today then 1 daily 250 mg PO ONCE 5 days 6 tabs 0RF J06.9 - Acute upper respiratory infection, unspecified
== END 2024-08-19 11:02 | disposition home or self-care (01) ==
PROVIDERS: PCP Internal Medicine; Visit Provider Internal Medicine
DX: Z00.00 Encounter for general adult medical examination without abnormal findings (principal); I10 Essential (primary) hypertension; E66.09 Other obesity due to excess calories; Z68.34 Body mass index [BMI] 34.0-34.9, adult; H66.92 Otitis media, unspecified, left ear; E78.9 Disorder of lipoprotein metabolism, unspecified; G44.89 Other headache syndrome; J45.909 Unspecified asthma, uncomplicated

== ENCOUNTER → 2024-08-19 10:32 | Outpatient (BNVA) | payer BC, SELFPAY | PROVIDERS: PCP Internal Medicine; Visit Provider Internal Medicine | DX: Z00.01 Encounter for general adult medical examination with abnormal findings (principal); H66.92 Otitis media, unspecified, left ear; I10 Essential (primary) hypertension; E78.9 Disorder of lipoprotein metabolism, unspecified; E66.09 Other obesity due to excess calories; Z68.34 Body mass index [BMI] 34.0-34.9, adult; G44.89 Other headache syndrome; J45.909 Unspecified asthma, uncomplicated; Z79.899 Other long term (current) drug therapy | CPT/HCPCS: 96127 ==

== ENCOUNTER 2024-08-23 10:23 | Outpatient (REF) | payer BC, SELFPAY ==
[2024-08-23 11:48] LABS: MANUAL DIFF FLAG NO
[2024-08-23 12:03] LABS: Basophils Absolute Auto 0.1 X10*3/uL (0.0-0.2); Basophils Percent Auto 0.7 % (0-2); Eosinophils Absolute Auto 0.1 X10*3/uL (0.0-0.4); Hematocrit 48.8 % (42.0-52.0); Hemoglobin 16.6 g/dl (14.0-18.0); Imm Gran Abs Auto 0.02 X10*3/uL (0.00-0.03); Imm Gran Pct Auto 0.2 % (0.0-0.4); Lymphocytes Absolute Auto 3.1 X10*3/uL (1.2-4.9); Lymphocytes Percent Auto 37.8 % (20-40); Mean Corpuscular Hemoglobin 30.7 pg (27.0-33.0); Mean Corpuscular Volume 90.4 fL (80.0-98.0); Mean Platelet Volume 10.2 fL (9.4-12.4); Monocytes Absolute Auto 0.7 X10*3/uL (0.1-1.2); Monocytes Percent Auto 8.3 % (2-11); Neutrophils Absolute Auto 4.3 x10*3/uL (2.0-8.3); Platelet Count 385 X10*3/uL (160-400); Red Cell Distribution Width 14.4 % (11.0-16.0); White Blood Count 8.2 X10*3/uL (4.8-10.8)
[2024-08-23 12:32] LABS: Alanine Aminotransferase 55 U/L (0-40); Alkaline Phosphatase 57 U/L (39-117); Anion Gap 7 (12-20); Aspartate Amino Transferase 35 U/L (5-37); Bilirubin Total 0.6 mg/dL (0.0-1.0); Blood Urea Nitrogen 22 mg/dL (9-16); Calcium 9.2 mg/dL (8.4-10.2); Carbon Dioxide 29 mmol/L (22-29); Chloride 109 mmol/L (96-108); Cholesterol 198 mg/dL (<200); Estimated Glomerular Filt Rate > 60; Glucose Fasting 92 mg/dL (60-99); HDL Cholesterol 34 mg/dL (>40); LDL Cholesterol Calculated 109 mg/dL (<100); Potassium 3.4 mmol/L (3.3-5.1); Sodium 142 mmol/L (135-145); Total Protein 7.6 g/dL (6.5-8.0); Triglycerides 278 mg/dL (<150)
== END 2024-08-23 10:24 | disposition home or self-care (01) ==
LOC: HO.HMGCLDS 10:23
PROVIDERS: PCP Internal Medicine; Visit Provider Internal Medicine
DX: E66.09 Other obesity due to excess calories (principal); Z68.34 Body mass index [BMI] 34.0-34.9, adult; E78.9 Disorder of lipoprotein metabolism, unspecified; I10 Essential (primary) hypertension; G44.89 Other headache syndrome; J45.909 Unspecified asthma, uncomplicated
CPT/HCPCS: 36415; 80053; 80061; 85025

== ENCOUNTER 2025-02-14 09:30 | Outpatient (REF) | payer BC, SELFPAY ==
[2025-02-14 11:15] LABS: MANUAL DIFF FLAG NO
[2025-02-14 11:19] LABS: Hematocrit 47.7 % (42.0-52.0); Hemoglobin 16.5 g/dl (14.0-18.0); Imm Gran Abs Auto 0.01 X10*3/uL (0.00-0.03); Imm Gran Pct Auto 0.1 % (0.0-0.4); Lymphocytes Absolute Auto 2.8 X10*3/uL (1.2-4.9); Mean Corpuscular HGB Conc 34.6 g/dl (31.0-36.0); Mean Corpuscular Hemoglobin 30.7 pg (27.0-33.0); Mean Corpuscular Volume 88.8 fL (80.0-98.0); NRBC Abs Auto 0.000 X10*3/uL (0.0-0.012); NRBC Pct Auto 0.0 /100WBC (0.0-0.2); Platelet Count 365 X10*3/uL (160-400); Red Blood Count 5.37 X10*6/uL (4.60-5.80); White Blood Count 7.0 X10*3/uL (4.8-10.8)
[2025-02-14 11:43] LABS: Alanine Aminotransferase 48 U/L (0-40); Albumin Level 4.3 g/dL (3.5-5.0); Alkaline Phosphatase 61 U/L (39-117); Anion Gap 12 (12-20); Aspartate Amino Transferase 38 U/L (5-37); Blood Urea Nitrogen 27 mg/dL (9-16); Calcium 8.9 mg/dL (8.4-10.2); Carbon Dioxide 27 mmol/L (22-29); Chloride 106 mmol/L (96-108); Cholesterol 190 mg/dL (<200); Estimated Glomerular Filt Rate > 60; HDL Cholesterol 30 mg/dL (>40); Potassium 3.5 mmol/L (3.3-5.1); Sodium 141 mmol/L (135-145); Total Protein 7.2 g/dL (6.5-8.0); Triglycerides 250 mg/dL (<150)
== END 2025-02-14 09:31 | disposition home or self-care (01) ==
LOC: HO.HMGCLDS 09:30
PROVIDERS: PCP Internal Medicine; Visit Provider Internal Medicine
DX: E66.09 Other obesity due to excess calories (principal); Z68.34 Body mass index [BMI] 34.0-34.9, adult; E78.9 Disorder of lipoprotein metabolism, unspecified; I10 Essential (primary) hypertension
CPT/HCPCS: 36415; 80053; 80061; 85025

== ENCOUNTER 2025-02-17 13:47 | Outpatient (AMB) | payer BC, SELFPAY ==
[2025-02-17 13:49] VITALS: BP 142/92; PULSE 86; O2SAT 97; BMI 34.8
--- NOTE | 2025-02-17 13:49 | A.OFFPC_ITS ---
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: No Accompanied by: Self / Same As Patient Allergies Tetanus Vaccines and Toxoid Allergy (Mild, Verified 02/17/25 13:50) Unknown diphtheria,pertussis (acell),tetanu Allergy (Unknown, Verified 02/17/25 13:50) Unknown Medication List - Last Reconciled 02/17/25 by Nader Parry MD albuterol sulfate 90 mcg/actuation (Ventolin HFA) 1 inh inhalation QID PRN 30 days fenofibrate nanocrystallized 145 mg PO DAILY 90 days hydrochlorothiazide 25 mg PO QAM 90 days lisinopril 30 mg PO DAILY 90 days Tobacco use date assessed: 08/19/24 Dental Screening Dental Screen Date: 08/19/24 HPI 6m f/u HPI Details History - The patient is a 54-year-old male was last seen July of this year presenting with a twisted left ankle. 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 He stepped into a dent in the ground, leading to the twisting of the left ankle. Initially, he was able to stand on it, but now he experiences tweaking. - The patient is managing his blood pres sure but went two days without medication to assess his blood pressure levels. During this period, the measured blood pressure was 128/88 mmHg. Blood pressure during the visit was recorded as 142/90 mmHg. - Reported being prediabetic, with recen t fasting sugar recorded at 103 mg/dL. - The patient gained weight temporarily but is now back to baseline weight, similar to that noted in March last year. Past weight was 231 lbs in 2020 and reduced to 213 lbs in 2021. - taking fenofibrate for lipid control Medical History: - Essential Hypertension - Prediabetes - Fatty liver (suspected due to lipid fl uctuation and weight status) - lipid disorder - obesity Social History: - The patient noted a temporary lifestyl e change due to his 's increased caregiving responsibility for her father, who recently had a foot amputation, leading to additional household duties and a weight increase. - The patient exercises at least 10 kika johnathan every morning. - Acknowledged high soda consumption and has reduced juice intake. - Interested in losing weight and bringi ng BMI to 25 to potentially discontinue blood pressure medication. Family History: - The patient's [id number] recently h ad half of his foot amputated. Medications - Fenofibrate 145 mg for lipid managemen t - Hydrochlorothiazide 25 mg for hyperten jil - Lisinopril 30 mg for hypertension Problem List - Twisted left ankle - Essential Hypertension - Prediabetes - Suspected Fatty Liver - lipid disorder - obesity Diagnostic results - Labs: - CBC: No anemia detected - Chemistries: Normal electrolytes, norm al kidney function - Fasting sugar: 103 mg/dL indicating pr ediabetes - Lipid panel: LDL cholesterol at 110 mg /dL Patient Instructions - Take it easy for a few days; monitor l eft ankle for increasing pain or swelling. - Restart blood pressure medication. - Focus on weight loss through regular e xercise and dietary adjustments to manage prediabetes. - Decrease intake of sugar-laden foods a nd beverages, focusing on fruits, vegetables, and protein. - Consider shopping at alternative store s for better-quality fruits within budget. - Use an alla wrap for ankle support if n ecessary. - Plan to follow up in three months. Review of Systems General: No fever no chills neurological: No headaches no dizziness ear nose throat: No sore throat no hearing difficulty no ear pain cardiovascular: No syncope, no chest pain, no palpitations gastrointestinal: No nausea vomiting or diarrhea endocrine: No polyuria polydipsia no heat intolerance genitourinary: No dysuria skin: No new complaints Physical Exam general: No acute distress HEENT: No acute findings neck: Supple respiratory system: Able to talk in full sentences, no audible wheeze no stridor cardiovascular: S1-S2 RRR, blood pressure is a little bit high, 142/90 gastrointestinal: No pain extremities: Mild left ankle sprain OPERATIONAL TRAINER: Alert awake oriented x3 motor sensory intact skin: Normal turgor PFSH Medical History Diverticular disease Internal hemorrhoid PONV (postoperative nausea and vomiting) Colon cancer screening Surgical History Hx of colonoscopy History of surgery Family History Mother No problems noted. Other Substance use disorder Social History Housing: House Are you a primary hospice care consultant to a significant other at home: No Do you presently have visiting nurse or other home services: No Patient Tobacco Use Status: Former Tobacco user e-Cigarette/Vaping Use: Never Used service: No Current occupational status: employed Cognitive needs: No Hearing needs: No Vision needs: Yes Questionnaire Thrive Questionnaire Date Thrive assessed: 02/17/25 I am a: Patient What is your living situation today?: I have a steady place to live Within the past 12 months, did the food you bought not last and you didn't have the money to get more?: Never true Within the past 12 months, did you worry whether your food would run out before you got money to buy more?: Never true Do you have trouble paying for medicines?: No Do you have trouble getting transportation to medical appointments?: No Do you have trouble paying your heating and electricity bill?: No Do you have trouble taking care of your child, family member or friend?: No Do you have trouble with day-to-day activities such as bathing, preparing meals, shopping, managing finances, etc.?: No Are you currently unemployed and looking for a job?: No Are you interested in more education?: No Please select the resources that you would like help with: None Currently or been in a relationship where the following occur: No concerns rep orted THRIVE Score: 0 DRAGAN-7 AMB Questionnaire DRAGAN-7 Date DRAGAN - 7 assessed: 08/19/24 Source: Developed by Drs. Nico Xiao, Denise Lagunas, Prabhakar Wright and colleagues, with an educational marixa from [employer]. Physical exam (Primary Care) Vital Signs: Last Vital Signs Pulse 86 02/17/25 13:49 BP 142/92 H 02/17/25 13:49 Pulse Ox 97 02/17/25 13:49 BMI result Body Mass Index 34.8 Tobacco/Smoking Status: Tobacco use Status Tobacco use date assessed 08/19/24 02/17/25 13:51 Patient Tobacco Use Status Former Tobacco user 02/17/25 13:51 e-Cigarette/Vaping Use Never Used 02/17/25 13:51 Thrive Assessment: Date of Thrive Assessment Date Thrive assessed 02/17/25 02/17/25 13:51 Currently or been in a relationship where the following occur: No concerns reported Coding Level of Care Code Est Pt Level 4 (01715) Diagnoses Hypertension, essential I10 Lipid disorder E78.9 Class 1 obesity due to excess calories with serious comorbidity and body mass index (BMI) of 34.0 to 34.9 in adult E66.09; Z68.34 Obesity classification: adult class 1 (BMI 30 - 34.9) Serious obesity comorbidity presence: with serious comorbidity Body mass index: BMI 34.0-34.9 Sprain of other ligament of left ankle, initial encounter S93.492A Encounter type: initial encounter Involved ligament of ankle: other ligament Prediabetes R73.03 Assessment & Plan Assessment & Plan (1) Hypertension, essential: Code(s): I10 - Essential (primary) hypertension Category: Medical (2) Lipid disorder: Code(s): E78.9 - Disorder of lipoprotein metabolism, unspecified Category: Medical (3) Obesity due to excess calories: Code(s): E66.09 - Other obesity due to excess calories Category: Medical Qualifiers: Obesity classification: adult class 1 (BMI 30 - 34.9) Serious obesity comorbidity presence: with serious comorbidity Body mass index: BMI 34.0-34.9 Qualified Code(s): E66.09 - Other obesity due to excess calories; Z68.34 - Body mass index [BMI] 34.0-34.9, adult (4) Sprain of ankle, left: Code(s): S93.402A - Sprain of unspecified ligament of left ankle, initial encounter Category: Medical Qualifiers: Encounter type: initial encounter Involved ligament of ankle: other ligament Qualified Code(s): S93.492A - Sprain of other ligament of left ankle, initial encounter (5) Prediabetes: Code(s): R73.03 - Prediabetes Category: Medical Plan History - The patient is a 54-year-old male was last seen July of this year presenting with a twisted left ankle. 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 He stepped into a dent in the ground, leading to the twisting of the left ankle. Initially, he was able to stand on it, but now he experiences tweaking. - The patient is managing his blood pressure but went two days without medication to assess his blood pressure levels. During this period, the measured blood pressure was 128/88 mmHg. Blood pressure during the visit was recorded as 142/90 mmHg. - Reported being prediabetic, with recent fasting sugar recorded at 103 mg/dL. - The patient gained weight temporarily but is now back to baseline weight, similar to that noted in March last year. Past weight was 231 lbs in 2020 and reduced to 213 lbs in 2021. - taking fenofibrate for lipid control Medical History: - Essential Hypertension - Prediabetes - Fatty liver (suspected due to lipid fluctuation and weight status) - lipid disorder - obesity Social History: - The patient noted a temporary lifestyle change due to his 's increased caregiving responsibility for her father, who recently had a foot amputation, leading to additional household duties and a weight increase. - The patient exercises at least 10 minutes every morning. - Acknowledged high soda consumption and has reduced juice intake. - Interested in losing weight and bringing BMI to 25 to potentially discontinue blood pressure medication. Family History: - The patient's [id number] recently had half of his foot amputated. Medications - Fenofibrate 145 mg for lipid management - Hydrochlorothiazide 25 mg for hypertension - Lisinopril 30 mg for hypertension Problem List - Twisted left ankle - Essential Hypertension - Prediabetes - Suspected Fatty Liver - lipid disorder - obesity Diagnostic results - Labs: - CBC: No anemia detected - Chemistries: Normal electrolytes, normal kidney function - Fasting sugar: 103 mg/dL indicating prediabetes - Lipid panel: LDL cholesterol at 110 mg/dL Patient Instructions - Take it easy for a few days; monitor left ankle for increasing pain or swelling. - Restart blood pressure medication. - Focus on weight loss through regular exercise and dietary adjustments to manage prediabetes. - Decrease intake of sugar-laden foods and beverages, focusing on fruits, vegetables, and protein. - Consider shopping at alternative stores for better-quality fruits within budget. - Use an alla wrap for ankle support if necessary. - Plan to follow up in three months. Medications: Refilled lisinopril 30 mg PO DAILY 90 tabs 0RF 90 days I10 - Essential (primary) hypertension hydrochlorothiazide 25 mg PO QAM 90 tabs 0RF 90 days
== END 2025-02-17 14:06 | disposition home or self-care (01) ==
LOC: HO.HMCC 13:48
PROVIDERS: PCP Internal Medicine; Visit Provider Internal Medicine
DX: I10 Essential (primary) hypertension (principal); E78.9 Disorder of lipoprotein metabolism, unspecified; E66.09 Other obesity due to excess calories; Z68.34 Body mass index [BMI] 34.0-34.9, adult; S93.492A Sprain of other ligament of left ankle, initial encounter; R73.03 Prediabetes

== ENCOUNTER 2025-05-20 15:13 | Outpatient (AMB) | payer BC, SELFPAY ==
[2025-05-20 15:20] VITALS: BP 130/80; PULSE 65; O2SAT 96; BMI 34.2
--- NOTE | 2025-05-20 15:20 | MHC.PC.OV ---
Vital Signs 05/20/25 15:20 Height 5 ft 9.5 in Weight 235 lb BMI 34.2 BP 130/80 Blood Pressure Location Lt brachial Position Sitting Pulse 65 Pulse Source Pulse Oximeter Pulse Oximetry (%) 96 Intake Visit Reasons: 3 months f/up Allergies Tetanus Vaccines and Toxoid Allergy (Mild, Verified 05/20/25 15:20) Unknown diphtheria,pertussis (acell),tetanu Allergy (Unknown, Verified 05/20/25 15:20) Unknown Medication List - Last Reconciled 05/20/25 by Nader Parry MD albuterol sulfate 90 mcg/actuation (Ventolin HFA) 1 inh inhalation QID PRN 30 days fenofibrate nanocrystallized 145 mg PO DAILY 90 days hydrochlorothiazide 25 mg PO QAM 90 days lisinopril 30 mg PO DAILY 90 days Tobacco use date assessed: 08/19/24 Dental Screening Dental Screen Date: 08/19/24 HPI 3 months f/up HPI Details History of Present Illness The patient is a 54-year-old male presenting for regular f/u apt Hypertension: - The patient has a history of hypertension, previously recorded at 142/92 mmHg in January. - Currently, the patient's blood pressure is improved, with readings of 130 systolic and 122/80 mmHg at its best. - Daily and twice-weekly morning home monitoring shows an average of 127/85 mmHg. - No associated symptoms such as lightheadedness or dizziness reported. - The patient is compliant with current medication therapy. Otitis Media: - The patient experienced Right ear congestion onset few days ago, with the pain peaking about two weeks ago. - The ear continues to feel blocked . - Symptoms improved over two weeks with no severe pain. Medications: - Lisinopril 30 mg for hypertension - Hydrochlorothiazide 25 mg for hypertension - Fenofibrate 145 mg for hyperlipidemia Social History: - Patient is experiencing the transition of having their last child leave for college. - Engages in moderate physical exercise, walking and using a treadmill two times a week. Diagnostic Results: - Labs: Previous blood test in January - Next blood test ordered and scheduled for July, required Problem List - Essential Hypertension - Otitis Media - Lipid disorder - Obesity Plan - Continue current antihypertensive regimen, and patient is to maintain home blood pressure monitoring. - Encourage continued lifestyle modifications for weight management and exercise regimen. - Prescribed Amoxicillin for 7 days to treat otitis media due to prolonged ear symptoms and congestion. - Deferred flu vaccination during this visit due to ongoing ear symptoms; advised to obtain from pharmacy once the patient feels better. - Blood test scheduled in July to reassess lipid levels and overall metabolic profile. Review of Systems - General: No fever no chills - Neurological: No headaches no dizziness - Ear nose throat: No sore throat - Cardiovascular: No syncope, no chest pain, no palpitations - Gastrointestinal: No nausea vomiting or diarrhea - Endocrine: No polyuria polydipsia no heat intolerance - Genitourinary: No dysuria , no blood in urine Physical Exam General: No acute distress HEENT: Rt ear erythema present , dull light reflex Neck: Supple Respiratory system: Able to talk in full sentences, no audible wheeze Cardiovascular: S1-S2 regular in rate and rhythm Gastrointestinal: No pain Extremities: No new findings NUTRITION ASSOCIATE: Alert awake oriented x3 motor intact Skin: Normal turgor [facility] Medical History Diverticular disease Internal hemorrhoid PONV (postoperative nausea and vomiting) Colon cancer screening Surgical History Hx of colonoscopy History of surgery Family History Mother No problems noted. Other Substance use disorder Social History Housing: House Are you a primary youth care worker to a significant other at home: No Do you presently have visiting nurse or other home services: No Patient Tobacco Use Status: Former Tobacco user e-Cigarette/Vaping Use: Never Used service: No Current occupational status: employed Cognitive needs: No Hearing needs: No Vision needs: Yes Questionnaire Thrive Questionnaire Date Thrive assessed: 08/18/24 I am a: Patient What is your living situation today?: I have a steady place to live Within the past 12 months, did the food you bought not last and you didn't have the money to get more?: Never true Within the past 12 months, did you worry whether your food would run out before you got money to buy more?: Never true Do you have trouble paying for medicines?: No Do you have trouble getting transportation to medical appointments?: No Do you have trouble paying your heating and electricity bill?: No Do you have trouble taking care of your child, family member or friend?: No Do you have trouble with day-to-day activities such as bathing, preparing meals, shopping, managing finances, etc.?: No Are you currently unemployed and looking for a job?: No Are you interested in more education?: No Please select the resources that you would like help with: None Currently or been in a relationship where the following occur: No concerns reported THRIVE Score: 0 DRAGAN-7 AMB Questionnaire DRAGAN-7 Date DRAGAN - 7 assessed: 08/19/24 Source: Developed by Drs. Nico Xiao, Denise Lagunas, Prabhakar Wright and colleagues, with an educational marixa from [employer]. Physical exam (Primary Care) Vital Signs: Last Vital Signs Pulse 65 05/20/25 15:20 BP 130/80 05/20/25 15:20 Pulse Ox 96 05/20/25 15:20 BMI result Body Mass Index 34.2 Tobacco/Smoking Status: Tobacco use Status Tobacco use date assessed 08/19/24 05/20/25 15:22 Patient Tobacco Use Status Former Tobacco user 05/20/25 15:22 e-Cigarette/Vaping Use Never Used 05/20/25 15:22 Thrive Assessment: Date of Thrive Assessment Date Thrive assessed 08/18/24 05/20/25 15:22 Currently or been in a relationship where the following occur: No concerns reported Coding Level of Care Code Est Pt Level 4 (37911) Diagnoses Hypertension, essential I10 Lipid disorder E78.9 Prediabetes R73.03 Class 1 obesity due to excess calories with serious comorbidity and body mass index (BMI) of 34.0 to 34.9 in adult E66.09; Z68.34 Body mass index: BMI 34.0-34.9 Obesity classification: adult class 1 (BMI 30 - 34.9) Serious obesity comorbidity presence: with serious comorbidity Infection of right ear H66.91 Assessment & Plan Assessment & Plan (1) Hypertension, essential: Code(s): I10 - Essential (primary) hypertension Category: Medical (2) Lipid disorder: Code(s): E78.9 - Disorder of lipoprotein metabolism, unspecified Category: Medical (3) Prediabetes: Code(s): R73.03 - Prediabetes Category: Medical (4) Obesity due to excess calories: Code(s): E66.09 - Other obesity due to excess calories Category: Medical Qualifiers: Body mass index: BMI 34.0-34.9 Obesity classification: adult class 1 (BMI 30 - 34.9) Serious obesity comorbidity presence: with serious comorbidity Qualified Code(s): E66.09 - Other obesity due to excess calories; Z68.34 - Body mass index [BMI] 34.0-34.9, adult (5) Infection of right ear: Code(s): H66.91 - Otitis media, unspecified, right ear Category: Medical Plan Hypertension: - The patient has a history of hypertension, previously recorded at 142/92 mmHg in January. - Currently, the patient's blood pressure is improved, with readings of 130 systolic and 122/80 mmHg at its best. - Daily and twice-weekly morning home monitoring shows an average of 127/85 mmHg. - No associated symptoms such as lightheadedness or dizziness reported. - The patient is compliant with current medication therapy. Otitis Media: - The patient experienced Right ear congestion onset few days ago, with the pain peaking about two weeks ago. - The ear continues to feel blocked . - Symptoms improved over two weeks with no severe pain. Medications: - Lisinopril 30 mg for hypertension - Hydrochlorothiazide 25 mg for hypertension - Fenofibrate 145 mg for hyperlipidemia Social History: - Patient is experiencing the transition of having their last child leave for college. - Engages in moderate physical exercise, walking and using a treadmill two times a week. Diagnostic Results: - Labs: Previous blood test in January - Next blood test ordered and scheduled for July, fasting required Problem List - Essential Hypertension - Otitis Media - Lipid disorder - Obesity Plan - Continue current antihypertensive regimen, and patient is to maintain home blood pressure monitoring. - Encourage continued lifestyle modifications for weight management and exercise regimen. - Prescribed Amoxicillin for 7 days to treat otitis media due to prolonged ear symptoms and congestion. - Deferred flu vaccination during this visit due to ongoing ear symptoms; advised to obtain from pharmacy once the patient feels better. - Blood test scheduled in July to reassess lipid levels and overall metabolic profile. Orders: Orders Complete Blood Count Auto Diff Today E66.09 - Other obesity due to excess calories, E78.9 - Disorder of lipoprotein metabolism, unspecified, I10 - Essential (primary) hypertension, R73.03 - Prediabetes, Z68.34 - Body mass index [BMI] 34.0-34.9, adult Comprehensive [place]. Panel Fast Today E66.09 - Other obesity due to excess calories, E78.9 - Disorder of lipoprotein metabolism, unspecified, I10 - Essential (primary) hypertension, R73.03 - Prediabetes, Z68.34 - Body mass index [BMI] 34.0-34.9, adult Lipid Panel Today E66.09 - Other obesity due to excess calories, E78.9 - Disorder of lipoprotein metabolism, unspecified, I10 - Essential (primary) hypertension, R73.03 - Prediabetes, Z68.34 - Body mass index [BMI] 34.0-34.9, adult Hemoglobin A1c Today R73.03 - Prediabetes Medications: New amoxicillin 500 mg PO Q8H 21 caps 0RF 7 days
== END 2025-05-20 15:47 | disposition home or self-care (01) ==
LOC: HO.HMCC 15:14
PROVIDERS: PCP Internal Medicine; Visit Provider Internal Medicine
DX: I10 Essential (primary) hypertension (principal); E78.9 Disorder of lipoprotein metabolism, unspecified; R73.03 Prediabetes; E66.09 Other obesity due to excess calories; Z68.34 Body mass index [BMI] 34.0-34.9, adult; H66.91 Otitis media, unspecified, right ear